=== PATIENT | male | born 1995 | race Caucasian/White ===

== ENCOUNTER 2024-12-05 17:19 | Emergency (ER) | payer MEDICAID, SELFPAY ==
[2024-12-05 17:40] VITALS: BP 134/91; PULSE 60; RESP 18; TEMP 36.8; O2SAT 99; BMI 20.6
--- NOTE | 2024-12-05 17:44 | XR_ITS ---
Examination: Venous duplex lower extremity sonogram, bilateral. Date and time of exam: December 05, 2024 1820 hours INDICATIONS: Bilateral foot and ankle pain and swelling beginning 2 days ago Technique: Multiple sonographic images of the deep venous system have been obtained. B-mode/2-D grayscale imaging of vascular structures and Doppler spectral analysis (waveforms) and color performed Both legs are examined. Findings: Deep venous systems do not demonstrate abnormal echogenicity. All visualized deep veins exhibit compressibility. All visualized deep veins exhibit augmentation. Impression: Negative for deep vein thrombosis
--- NOTE | 2024-12-05 17:44 | XR_ITS ---
Examination: PA lateral chest 2 views TECHNIQUE: Upright PA lateral chest 2 views Date and time: December 05, 2024 1801 hours INDICATIONS: Headaches shortness of breath today FINDINGS: Normal heart size No pneumonia or pulmonary edema The osseous structures are intact IMPRESSION: No active disease
--- NOTE | 2024-12-05 17:45 | PD.EDRME ---
Rapid Medical Screening Exam RME Arrival date/time: 12/05/24 17:19 29-year-old male who presents to the emergency department for complaint of bilateral lower extremity swelling and pain Chief Complaint: General Adult/Misc Complain Vital signs: Vital Signs Temperature 98.2 F 12/05/24 17:40 Pulse Rate 60 12/05/24 17:40 Respiratory Rate 18 12/05/24 17:40 Blood Pressure 134/91 H 12/05/24 17:40 Pulse Oximetry (%) 99 12/05/24 17:40 Oxygen Delivery Method Room Air 12/05/24 17:40
[2024-12-05 18:33] LABS: Collection Type, Urine Clean Catch
[2024-12-05 18:43] LABS: Bilirubin,Urine Negative (Negative); Blood,Urine 2+ (Negative); Clarity,Urine Clear (Clear/Hazy); Color,Urine Yellow (Lt Yel-Yel); Glucose, Urine Negative (Negative); Ketones,Urine Negative (Negative); Leukocyte Esterase,Urine Negative (Negative); Nitrite,Urine Negative (Negative); PH,Urine 6.5 (5.0-7.0); Protein,Urine 3+ (Neg - Trace); RBC,Urine 17 /hpf (0-3); Specific Gravity,Urine 1.042 (1.001-1.035); Squamous Epithelial Cell,Urine < 1 /hpf (0-5); Urobilinogen,Urine Negative mg/dL (0.0-1.0); WBC,Urine 13 /hpf (0-5)
[2024-12-05 18:51] LABS: Culture Indicated,Urine Yes
[2024-12-05 18:53] LABS: Amphetamine/Methamp Scrn,U Negative (Negative); Barbiturate Screen,Urine Negative (Negative); Benzodiazepines Screen,Urine Negative (Negative); Benzoylecgonine Screen, Ur Negative (Negative); Fentanyl Screen,Urine Negative (Negative); Opiate Screen,Urine Negative (Negative); THC Screen,Urine Positive (Negative)
[2024-12-05 19:14] LABS: Basophils # (Auto) 0.1 Thou/mm3 (0.0-0.2); Basophils % (Auto) 1 % (0-2.5); Eosinophils # (Auto) 0.2 Thou/mm3 (0.0-0.5); Eosinophils % (Auto) 3 % (0-10); Hematocrit 40.1 % (41.0-53.0); Hemoglobin 14.3 g/dL (13.5-16.0); Immature Granulocytes % (Auto) 0 % (0-0); Immature Granulocytes Auto 0.02 Thou/mm3 (0.00-0.00); Lymphocytes # (Auto) 2.6 Thou/mm3 (1.0-4.8); Lymphocytes % (Auto) 33 % (10-50); Mean Corpuscular HGB Conc 35.7 g/dl (31.0-37.0); Mean Corpuscular Volume 87 fL (80-100); Monocytes # (Auto) 0.7 Thou/mm3 (0.0-0.8); Monocytes % (Auto) 8 % (0-12); Neutrophils # (Auto) 4.3 Thou/mm3 (1.8-7.7); Neutrophils % (Auto) 54 % (37-80); Nucleated Red Blood Cell % 0 /100 WBC (0); Platelet Count 259 Thou/mm3 (140-440); RDW Standard Deviation 37.1 fL (35.1-43.9); Red Blood Count 4.62 Miln/mm3 (4.50-5.90); White Blood Count 7.9 Thou/mm3 (3.8-10.6)
[2024-12-05 19:31] LABS: Partial Thromboplastin Time 27.6 Seconds (22.0-36.0); Prothrombin Time 10.6 Seconds (9.0-12.2)
[2024-12-05 19:43] LABS: B-Type Natriuretic Peptide 83 pg/mL (0-100)
[2024-12-05 19:45] LABS: Alanine Aminotransferase 115 U/L (10-49); Albumin, Serum 2.4 gm/dL (3.5-5.0); Albumin/Globulin Ratio 1.3 (1.2-2.2); Alkaline Phosphatase 49 U/L (46-116); Anion Gap 8 (7-16); Aspartate Amino Transferase 111 U/L (0-34); BUN/Creatinine Ratio 23 Ratio (12-20); Bilirubin,Total 0.4 mg/dL (0.3-1.2); Blood Urea Nitrogen 28 mg/dL (9-23); Calcium 8.8 mg/dL (8.3-10.6); Calcium (Corrected) 10.1 mg/dL (8.5-10.1); Carbon Dioxide 26.9 mMol/L (20.0-31.0); Chloride 103 mMol/L (98-107); Creatinine (Component) 1.2 mg/dL (0.6-1.3); Estimated Creatinine Clearance 82.4 mL/min (>60); Globulin 1.8 gm/dL (2.3-3.5); Glucose 98 mg/dL (74-106); Osmolality,Calculated 281 (275-295); Potassium 4.1 mMol/L (3.4-5.1); Sodium 138 mMol/L (136-145); Total Protein 4.2 gm/dL (5.7-8.2); eGFR > 60 See Note
--- NOTE | 2024-12-05 19:47 | XR_ITS ---
Examination: CT chest with intravenous contrast CT abdomen with intravenous contrast CT pelvis with intravenous contrast 2-D coronal and sagittal reconstructions Time of exam: December 05, 20242002 hours INDICATIONS: Diffuse pedal edema and shortness of breath today CTDI: vol (mGy) : 5.20 DLP: (mGycm): 393 Technique: Multiple axial images of the chest, abdomen and pelvis with intravenous contrast, 3.0 mm slice thickness. Images obtained post intravenous injection Isovue 370 60 cc. 2-D sagittal and coronal reconstructions. Low dose protocols were performed. One or more of the following dose reduction techniques were used; automated exposure control, adjustment of the mA and/or KV according to patient size, use of iterative reconstruction technique. Findings: No thoracic aortic aneurysm dilatation No pulmonary artery emboli No paratracheal tracheobronchial or bronchopulmonary adenopathy No pneumonia or pulmonary edema or pleural disease No visualized liver or splenic lesion Diffuse fatty infiltration throughout the liver No focal liver or splenic lesion Mild ascites Thickening of small bowel loops and colon hanley No gallstones No pancreatic mass No hydronephrosis Anasarca Normal appendix No bowel obstruction Urinary bladder is intact IMPRESSION: Suspect primary hepatocellular disease, such as acute hepatitis Mild ascites, anasarca Hepatic colopathy, hepatic enteropathy
--- NOTE | 2024-12-05 20:06 | EDNOTE_ITS ---
Lower Extremity Injury RME/HPI General Chief Complaint: General Adult/Misc Complain Stated Complaint: B/L SWELLING FEET Time Seen by Provider: 12/05/24 18:14 Arrival date/time: 12/05/24 17:19 Mode of arrival: ambulatory Limitations: no limitations RME / HPI RME / HPI Narrative: 12/05/24 17:19 29-year-old male who presents to the emergency department for complaint of bilateral lower extremity swelling and pain DR. DOMINGO?S MAIN ED EVALUATION: 29-year-old male presenting to the emergency department via private auto who is presenting for chief complaint of BLE swelling that has migrated to his waist x 3 days. Swelling began at the feet and ankles before moving up to his waste. He also reports some nausea and vomiting x this morning. 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 Patient has no PCP, but has been seen and told that he had edema, but no explanation as to why. Patient has an appointment next month to establish care with a PCP at [facility]. No associated symptoms include fatigue and tiredness, SOB, diarrhea, fever, dysuria, and abdominal pain. Also denies alcohol use or history of liver disease, but admits to Marijuana use. Brother has a history of cystic fibrosis. Patient denies any other associated symptoms or medical complaints. - PMH:?Denies - PSH: Denies - Social history: Marijuana - Current medications: Reviewed PCP is N/A complaint: other (BLE Swelling) Onset (ago): day(s) (3) Associated symptoms: ambulatory Other symptoms: none Related Data Previous Rx's ?Medication ?Instructions ?Recorded ibuprofen 800 mg tablet 800 mg PO TID PRN pain #30 t abs 01/10/22 atorvastatin 40 mg tablet 40 mg PO QDAY hyperlipidemia 30 12/05/24 days #30 tabs furosemide 20 mg tablet 20 mg PO QAM swelling #30 ta bs 12/05/24 lisinopril 5 mg tablet 5 mg PO QDAY proteinuria 30 days 12/05/24 #30 tabs Allergies Allergy/AdvReac Type Severity Reaction Status Date / Time No Known Allergies Allergy Verified 12/05/24 17:21 Review of Systems Review of Systems Systems Reviewed: All systems reviewed, normal except as documented Past Medical History Past Medical History CARDIAC: Negative Cardiac Disorders or Congestive Heart Failure RESPIRATORY: Negative Chronic Obstructive Pulmonary Disease (COPD) or Asthma GENITOURINARY: Negative Renal Disease ENDOCRINE: Negative Diabetes Mellitus Type 1 or Diabetes Mellitus Type 2 HEMATOLOGIC: Negative Sickle Cell Disease Social History SMOKING STATUS: Current every day smoker ED Exam General Limitations: Present no limitations Head Head exam: Present atraumatic, normocephalic and normal inspection Eye Eye exam: Present normal appearance, PERRL and EOMI; Absent nystagmus ENT ENT exam: Present normal exam, normal oropharynx, mucous membranes moist and TM's normal bilaterally Neck Neck exam: Present normal inspection, full ROM and trachea midline; Absent tenderness Chest Chest inspection: Present normal inspection and symmetric chest wall rise; Absent tenderness or rash Respiratory Respiratory exam: Present normal lung sounds bilaterally; Absent respiratory distress, wheezes or stridor Cardiovascular Cardiovascular exam: Present regular rate, normal rhythm and normal heart sounds Abdominal Exam Abdominal exam: Present other (Diffused 1+ pitting edema of the stomach); Absent organomegaly (No liver masses) Extremities Exam Extremities exam: Present other (Swelling of BLE, RT > LT); Absent tenderness Back Exam Back exam: Present normal inspection and full ROM; Absent tenderness or paraspinal tenderness Neurological Exam Neurological exam: Present alert, oriented X3, CN II-XII intact and normal gait Psychiatric Psychiatric exam: Present normal affect and normal mood; Absent depressed, agitated or anxious Skin Skin exam: Present warm, dry and intact Course Course Course Narrative: CXR is ordered for determining the etiology of shortness of breath. Quality Measures none Orders Category Date Time Status CT Screening NOW Care 12/05/24 19:[address] chest abdomen pelvis w Stat Exams 12/05/24 19:47 Completed US renal BI Stat Exams 12/05/24 23:40 Taken US venous doppler LE BI Stat Exams 12/05/24 17:44 Completed XR chest 2V Stat Exams 12/05/24 17:44 Completed ANCA Scrn,MPO&PR3,Rflx Titer* Stat Lab 12/05/24 Received [id number]* Stat Lab 12/05/24 Received BNP [B-Type Natriuretic Peptide] Stat Lab 12/05/24 18:56 Completed CBC Stat Lab 12/05/24 18:56 Completed Comprehensive Metabolic Panel Stat Lab 12/05/24 18:56 Completed Drug Screen,Urine Stat Lab 12/05/24 18:13 Completed Hepatitis Acute Panel Stat Lab 12/05/24 22:56 Received Lipid Panel Stat Lab 12/05/24 22:56 Completed Partial Thromboplastin Time Stat Lab 12/05/24 18:56 Completed Prothrombin Time with INR Stat Lab 12/05/24 18:56 Completed UA, C/S IF [Urinalysis, C/S if Indicated] Stat Lab 12/05/24 18:12 Completed Urine Culture Stat Lab 12/05/24 18:12 Received Furosemide [Lasix Inj] Med 12/05/24 23:30 Discontinued 20 mg IVP X1 ONE Vital Signs Vital signs: Vital Signs Temperature 98.2 F 12/05/24 17:40 Pulse Rate 60 12/05/24 17:40 Respiratory Rate 18 12/05/24 17:40 Blood Pressure 134/91 H 12/05/24 17:40 Pulse Oximetry (%) 99 12/05/24 17:40 Oxygen Delivery Method Room Air 12/05/24 17:40 Extremity Injury, Lower MDM Narrative MDM Narrative:: Scribe Attestation: 12/05/2024 - Judi Calderon am scribing for and in the presence of Dr. Domingo. Provider Notation: Although this document has been carefully reviewed, there may still be some phonetic and other typographical errors.? These errors are purely grammatical due to imperfections in the software program and should not be construed in any way to compromise the substance of the patient's medical care during this visit. 29-year-old male presenting to the emergency department via private auto who is presenting for chief complaint of BLE swelling that has migrated to his waist x 3 days. Swelling began at the feet and ankles before moving up to his waste. He also reports some nausea and vomiting x this morning. ROS: BLE swelling up to his waist x 3 days; nausea, vomiting x this morning. Differential diagnoses include UTI, Protein urea, Tumor, Liver disorder, Acute Renal Failure, Cardiovascular Disease, Hx of Alcohol Patient data External records reviewed:: [facility] previous records (No recent ED records available for review) Clinical information provided by:: patient Social determinants that could affect healthcare access:: substance use (Jessica prasad) Patient has the following chronic illnesses:: None reported How is presenting disease/condition affected by chronic disease/condition?: no chronic disease Evaluation data The following diagnostics were reviewed and interpreted by me:: lab results and radiology exam(s) Lab and/or radiology exams considered but not ordered:: None Interpretation Summary: RADIOLOGY Chest/Abdomen/Pelvis CT: CT, my interpretation: reviewed, interpreted, and agreed with radiologist report; see below. Findings: No thoracic aortic aneurysm dilatation No pulmonary artery emboli No paratracheal tracheobronchial or bronchopulmonary adenopathy No pneumonia or pulmonary edema or pleural disease No visualized liver or splenic lesion Diffuse fatty infiltration throughout the liver No focal liver or splenic lesion Mild ascites Thickening of small bowel loops and colon hanley No gallstones No pancreatic mass No hydronephrosis Anasarca Normal appendix No bowel obstruction Urinary bladder is intact IMPRESSION: Suspect primary hepatocellular disease, such as acute hepatitis Mild ascites, anasarca Hepatic colopathy, hepatic enteropathy Venous Doppler Study: Findings: Deep venous systems do not demonstrate abnormal echogenicity. All visualized deep veins exhibit compressibility. All visualized deep veins exhibit augmentation. Impression: Negative for deep vein thrombosis Chest X-Ray: FINDINGS: Normal heart size No pneumonia or pulmonary edema The osseous structures are intact IMPRESSION: No active disease Renal US: Findings: Right: The right kidney measures 11.9 cm and is unremarkble. There is no hydronephrosis or renal calculus. The corticomedullary differentiation is maintained. Left: The left kidney measures 11.9 cm and is unremarkble. There is no hydronephrosis or renal calculus. The corticomedullary differentiation is maintained. No abnormalities by Doppler. Impression: Unremarkable renal ultrasound examination. LABS Marijuana Positive. Hct 40.1%, Immature Gran # 0.02. BUN 28, BUN/Creatinine Ratio 23, AST 111, ALT 115, Total Protein 4.2, Albumin 2.4, Globulin 1.8. Urine Specific [place] 1.042, Urine Protein 3+, Urine Blood 2+, Urine RBC 17, Urine WBC 13. Medications / Prescriptions Medications or Prescriptions considered but not ordered:: None Medication administrations:: Medication Administration History Discontinued Medications Furosemide (Furosemide Inj 10 Mg/Ml Vial 2 Ml) 20 mg IVP X1 ONE Stop: 12/05/24 23:31 Last Admin: 12/06/24 01:00 Dose: 20 mg Documented By: See above if any Consultations Consultation(s) initiated? (list below): Yes Consultation #1 (Physician, Specialty, Details): Spoke to medicine, made aware of the patient?s HPI, PMHx, lab and/or radiology results. Discussed treatment plan. Will come down to evaluate patient. Time: 22:16 Diagnosis Extremity Injury, Lower Differential Diagnosis: other (UTI, Protein urea, Tumor, Liver disorder, Acute Renal Failure, Cardiovascular Disease, Hx of Alcohol) Most likely diagnosis given after review of the tests above:: Anasarca, Pedal edema, Nephrotic syndrome Admission Indicated Admission indicated?: not indicated Explain why admission is indicated or not indicated:: Does not meet admission criteria Admission Request Was there a request for admission?: No Discharge Plan Plan Patient Disposition: HOME (Self Care) Patient condition on transfer: Stable Prescriptions/Referrals Prescriptions/Med Rec: New furosemide 20 mg tablet 20 mg PO QAM Qty: 30 0RF lisinopril 5 mg tablet 5 mg PO QDAY 30 Days Qty: 30 0RF atorvastatin 40 mg tablet 40 mg PO QDAY 30 Days Qty: 30 0RF No Action ibuprofen 800 mg tablet 800 mg PO TID PRN (Reason: pain) Qty: 30 0RF Referrals: Nickolas Montiel MD [Primary Care Provider] - In 1 week Problem List Clinical Impression: Nephrotic syndrome, Pedal edema, Anasarca Patient/Caregiver Discharge Instructions Education Materials: Kidney Disease Avoid High Sodium Additional Instructions: It is very important that [facility] in the next 2 to 3 days. The preliminary renal ultrasound was completed c 1. DO READ your discharge instructions as these contain important information concerning your medical care. 2. If medication has been prescribed for your condition, fill the prescription as soon as possible and follow the directions on the medication. 3. RETURN AT ONCE TO THE EMERGENCY DEPARTMENT if you have any problems or concerns. These include but are not limited to fever, worsening pain(belly, chest, head, etc?), worsening shortness of breath, uncontrollable bleeding, inability to tolerate food and water, or any condition that makes you question your well-being. Also, if your symptoms do not improve in the next 12-24 hours, return to the ER or seek medical care immediately. 4. Be sure to follow up with your regular physician or specialist as instructed at discharge as this is the best way to ensure that you receive the very best of care. If you do not have a primary care physician, please contact a physician group and make an appointment. 5. Please visit [facility] for coupons regarding your prescriptions. It is a free service for you to use and can help reduce the cost of your medication. 6. Please follow up with the [facility], call for appointment when it opens on Saturday, 12/08 9 am - 4 pm: [address] [place] [address] You may schedule an appointment that fits your schedule. Dr. Hopkins who saw you in the ER will be available on Saturday. We would like to thank you for coming today and our hope is that we served you and your family well during your stay. Print Language: Russian Stand Alone Forms: Jacquelyn Award Info., Patient Portal Info Letter
[2024-12-05 23:24] LABS: Cardiac Risk Estimate 4.1 RATIO (4.0-6.7); Cholesterol 368 mg/dL (132-200); HDL Cholesterol 89 mg/dL (40-60); LDL Cholesterol,Calculated 256 mg/dL (0-130); Triglycerides 116 mg/dL (30-150)
--- NOTE | 2024-12-05 23:40 | XR_ITS ---
Examination: Retroperitoneal ultrasound, complete Technique: Multiple high resolution grayscale images of the retroperitoneum obtained, including kidneys and bladder. Exam date and time:December 05, 2024 11:53 AM INDICATIONS: Nephrotic syndrome diagnosis this week FINDINGS: Right kidney 11.9 cm renal cortex is 1.6 cm Left kidney 11.9 cm cortex 1.2 cm Mild renal parenchymal scar formation No hydronephrosis IMPRESSION: Mild bilateral renal parenchymal scar formation No hydronephrosis or renal calculi
[2024-12-05 23:50] LABS: HIV (1&2) Antibody Rapid Non-Reactive
--- NOTE | 2024-12-06 00:46 | PD.RESCONSUL ---
HPI Data of Consult Primary Care Provider: Nickolas Montiel MD Consult Narrative Reason for consult: Anasarca History of present illness: Patient is a 29-year-old male with no past medical history who presented to the ED on 12/05/2024 with bilateral swelling to the lower extremities starting 3 days ago which has spread up to his waist this morning. He also had an episode of nausea and vomiting this morning. He denies any abdominal or flank pain. He denies any similar prior episodes. Patient denies any change to bowel or urinary habits, denies foam in the urine. Patient denies any recent illness, travel, sick contacts, change to diet, illicit drug or IV use. Patient is a welder production line arc. He lives at home with and kids. Patient has seen a clinic and was told that he had edema without specific diagnosis and instructed to elevate his legs. Patient denies any known family history of liver disorders or kidney disease. ED Course: -Initial vitals were 134/91, HR 60, RR 18, Temp 98.2, O2 99% on room air -Labs significant for BUN 28, creatinine 1.2, normal electrolytes, AST 111, ALT 115, total protein 4.2, albumin 2.4, triglycerides 116, total cholesterol 368, LDL 256, HDL 89 -UA showed 3+ protein, 2+ blood, 17 RBCs, 13 WBCs -Utox was positive for marijuana -CXR normal -US venous duplex bilateral lower extremities negative for DVT -CT chest/abdomen/pelvis with contrast showed suspected primary hepatocellular disease, such as acute hepatitis, mild ascites, anasarca, hepatic colopathy, hepatic enteropathy -Hospital team was consulted for further recommendations for treatment and workup of anasarca Review of Systems Review of systems otherwise negative except what is mentioned above. cc:: cc: Past Medical History Past Medical History Comments PMH COMMENT: Past Medical History: None Family History: Denies any family history of hypertension, diabetes, liver, or kidney disease Surgical History: Denies any past surgeries Social History: Denies history of smoking, denies current alcohol use, smokes marijuana daily Current Medications: None (Source: Patient) Allergies: No known drug allergies Exam Vital Signs Temp Pulse Resp BP Pulse Ox O2 Del Method 98.2 F 60 18 134/91 H 99 Room Air 12/05/24 17:40 12/05/24 17:40 12/05/24 17:40 12/05/24 17:40 12/05/24 17:40 12/05/24 17:40 Narrative Exam Physical Exam General: Awake and in no acute distress. Conversational and non-toxic appearing. Face appears to have some muscle wasting. HEENT: Normocephalic, atraumatic, mucous membranes moist. Heart: Regular rate and rhythm, normal S1 and S2, no murmurs. Lungs: Clear to auscultation with no wheezing or crackles. Abdomen: Soft, nondistended, nontender, positive bowel sounds. ?No guarding or rebound tenderness. Neurologic: Alert and oriented x3, no gross neurological deficit, and patient able to move all 4 extremities. Extremities: 2+ bilateral lower extremity pitting edema, pitting edema up to the waist Skin: No rash or ecchymoses. Results Labs 12/05/24 18:56 12/05/24 18:56 Labs: Short CBC 12/05/24 Range/Units 18:56 WBC 7.9 (3.8-10.6) Thou/mm3 Hgb 14.3 (13.5-16.0) g/dL Hct 40.1 L (41.0-53.0) % Plt Count 259 (140-440) Thou/mm3 BMP 12/05/24 18:56 Sodium 138 Potassium 4.1 Chloride 103 Carbon Dioxide 26.9 BUN 28 H Creatinine 1.2 Glucose 98 Calcium 8.8 Liver Function 12/05/24 Range/Units 18:56 Total Bilirubin 0.4 (0.3-1.2) mg/dL AST 111 H (0-34) U/L ALT 115 H (10-49) U/L Alkaline Phosphatase 49 (46-116) U/L Albumin 2.4 L (3.5-5.0) gm/dL Urine 12/05/24 Range/Units 18:12 Urine Color Yellow (Lt Yel-Yel) Urine Clarity Clear (Clear/Hazy) Urine pH 6.5 (5.0-7.0) Ur Specific [place] 1.042 H (1.001-1.035) Urine Protein 3+ A (Neg - Trace) Urine Glucose (UA) Negative (Negative) Quality Measures Quality Measures none Medications Home Medications and Allergies Allergies Allergy/AdvReac Type Severity Reaction Status Date / Time No Known Allergies Allergy Verified 12/05/24 17:21 Visit Medications Discontinued Medications Furosemide (Furosemide Inj 10 Mg/Ml Vial 2 Ml) 20 mg IVP X1 ONE Stop: 12/05/24 23:31 Assessment & Plan Plan 29-year-old male with no past medical history who presented to the ED on 12/05/2024 with bilateral swelling to the lower extremities starting 3 days ago. Hospital team was consulted for further recommendations regarding further treatment and workup of anasarca. #Anasarca #Bilateral lower extremity edema #Proteinuria #Hematuria #AST and ALT elevation #Possible hepatic disease #Possible nephrotic syndrome #Hyperlipidemia Patient presents with acute, progressive lower extremity edema. Workup in the ED reveals proteinuria of 3+, hematuria 2+. CT chest/abdomen/pelvis with contrast showed suspected primary hepatocellular disease, such as acute hepatitis, mild ascites, anasarca, hepatic colopathy, hepatic enteropathy. However patient is denying any risk factors for acute hepatitis or liver disease. Will recommend additional screening tests. On examination the patient has lower extremity pitting edema that is 2+ up to the waist, however is conversant, on room air, and not ill-appearing. Patient is reporting adequate urine production. Lipid panel revealed triglycerides 116, total cholesterol 368, LDL 256, HDL 89. Elevated TC and LDL may support a diagnosis of nephrotic syndrome. -Recommend hepatitis panel - pending -Ordered HIV, ANCA, MPO, AP3, [id number] -Ordered 1 dose of Lasix 20 mg IV x1 -Recommend renal US -Prescribed lisinopril 5 mg qday for proteinuria -Prescribed furosemide 20 mg qday for anasarca -Prescribed atorvastatin 40 mg qday for hyperlipidemia -Patient is safe to be discharged home with strict return precautions -Patient advised to follow up at [facility] for Nephrology referral and further workup Patient plan of care was discussed with the attending physician, Dr. Sorto. Marquita Hopkins, PGY-2
--- NOTE | 2024-12-06 00:56 | PRELIM_ITS ---
Renal/Retroperitoneal ultrasound with Doppler. December 05, 2024 at 2353 hours Clinical history: Nephrotic syndrome. Technique: Duplex scan of the bilateral renal arterial and venous tree was performed utilizing 2D grayscale imaging, Doppler spectral analysis and color flow. Comparison: No prior study is available for comparison. Findings: Right: The right kidney measures 11.9 cm and is unremarkable. There is no hydronephrosis or renal calculus. The corticomedullary differentiation is maintained. Left: The left kidney measures 11.9 cm and is unremarkable. There is no hydronephrosis or renal calculus. The corticomedullary differentiation is maintained. No abnormalities by Doppler. Impression: Unremarkable renal ultrasound examination. Report Electronically Signed By: Rock Menard 12/06/2024 12:55:38 AM [EST]
[2024-12-06 01:00] VITALS: BP 115/79; PULSE 64
[2024-12-06] MEDS: FUROSEMIDE INJ 10 MG/ML VIAL 2 ML 20 MG IVP (01:00)
[2024-12-06 01:19] VITALS: BP 120/82; PULSE 55; RESP 18; TEMP 36.6; O2SAT 97
[2024-12-08 10:21] LABS: Hepatitis A Antibody IgM Non Reactive (Non React); Hepatitis B Core Antibody IgM Non Reactive (Non React); Hepatitis B Surface Antigen Non Reactive (Non React); Hepatitis C Antibody Non Reactive (Non React)
[2024-12-14 07:27] LABS: ANCA Screen NEGATIVE (NEGATIVE); Alpha-1-Antitrypsin* 97 mg/dL (83-199); Myeloperoxidase Ab <1.0 AI (<1.0); Proteinase-3 Ab <1.0 AI (<1.0)
== END 2024-12-06 01:20 | disposition home or self-care (01) ==
PROVIDERS: Nurse Practitioner Primary Care; Student in an Organized Health Care Education/Training Program; Emergency Provider Emergency Medicine; PCP Family Medicine
DX: M79.89 Other specified soft tissue disorders (principal); N04.9 Nephrotic syndrome with unspecified morphologic changes; R60.0 Localized edema
CPT/HCPCS: 36415; 71046; 71260; 74177; 76770; 80053; 80061; 80074; 80307; 81001; 82103; 83880; 85025; 85610; 85730; 86021; 86036; 86703; 87086; 93970; 96374; 99285; A4649; J1938; Q9967

== ENCOUNTER 2024-12-07 19:17 | Emergency (ER) | payer MEDICAID, SELFPAY ==
[2024-12-07 19:42] VITALS: BP 124/77; PULSE 66; RESP 18; TEMP 36.7; O2SAT 97
--- NOTE | 2024-12-07 20:17 | PD.EDRME ---
Rapid Medical Screening Exam RME Arrival date/time: 12/07/24 19:17 29-year-old male diagnosed with anasarca reports with complaints of worsening lower extremity swelling Chief Complaint: Extremity Problem,Nontraumatic Time Seen by Provider: 12/07/24 19:44 Vital signs: Vital Signs Temperature 98.0 F 12/07/24 19:42 Pulse Rate 66 12/07/24 19:42 Respiratory Rate 18 12/07/24 19:42 Blood Pressure 124/77 12/07/24 19:42 Pulse Oximetry (%) 97 12/07/24 19:42 Oxygen Delivery Method Room Air 12/07/24 19:42
--- NOTE | 2024-12-07 20:24 | PD.EDEXREM ---
ED Extremity Problem RME/HPI General Chief complaint: Extremity Problem,Nontraumatic Stated complaint: SWELLING TO LOWER BODY Time Seen by Provider: 12/07/24 19:44 Arrival date/time: 12/07/24 19:17 RME / HPI RME / HPI Narrative: 12/07/24 19:17 29-year-old male diagnosed with anasarca reports with complaints of worsening lower extremity swelling ------ This section includes all my notes and documentations, including HPI, PE, and ED course. Dean Mora MD HPI: 29yo male presents to the ED for a chief complaint of swelling from his waist down. Patient states he was here 2 days ago for swelling to his abdomen and lower extremities, but states it has not improved since he was discharged, so he came in for further evaluation. Patient denies any chest pain, shortness of breath, abdominal pain or any other associated symptoms. Denies any alcohol use. Denies being on any daily medications. No other complaints reported. ROS: All negative except as documented in HPI. Physical Exam: General: Alert and oriented. No acute distress when remaining still. Eyes: Conjunctivae and lids clear. ENT: No nasal congestion. Neck: Supple. Heart: RRR. Lungs: No respiratory distress. Good air movement. No rhonchi, wheezing, rales. Abdomen: Soft and nontender. Normal bowel sounds. No distension. No rebound or guarding. Back: No CVA tenderness. Skin: Warm and dry. Neuro: Alert and oriented X 3. I reviewed all diagnostic test results from here on 12/05/2024. At this point, diagnoses include liver disease. Recommended supportive care and more workup with liver specialist. Based on my best medical judgment, made decision no further evaluation or treatment indicated at this time. Patient understands and agrees to the discharge instructions customized and printed, see below. Discharge Instructions from Dr. Mora printed for you: 1. After extensive evaluation here on 12/05/2024, your swelling in the abdomen and lower extremities is due to liver disease. 2. Your liver makes proteins needed in the blood vessels to keep the fluid/blood in the vessels. Because of your liver disease, this isn't working as well. So the fluid/blood leaking out of the blood vessels are causing your swellings. 3. Take Lasix/furosemide daily as prescribed on 12/05/2024. This can lower your potassium levels. So eat a banana daily. 4. When resting or sitting or sleeping, elevate your feet/ankles above your waist level. This is important to get the extra fluid back into your circulation so you can urinate out the fluid. 5. Most importantly, see a private doctor on 12/08/2024 for further care. Ask to review all test results and official radiology reports from 12/05/2024, to make sure you receive all necessary follow-ups and monitoring. Ask for help to find the cause and treatment of your liver disease. With more care not available here in the ER. Such as referral to see a liver specialist. 6. Seek immediate medical care with significant worsening or with any concerns. Dean Mora MD Related Data Previous Rx's ?Medication ?Instructions ?Recorded ibuprofen 800 mg tablet 800 mg PO TID PRN pain #30 tabs 01/10/22 atorvastatin 40 mg tablet 40 mg PO QDAY hyperlipidemia 30 12/05/24 days #30 tabs furosemide 20 mg tablet 20 mg PO QAM swelling #30 tabs 12/05/24 lisinopril 5 mg tablet 5 mg PO QDAY proteinuria 30 days 12/05/24 #30 tabs Allergies Allergy/AdvReac Type Severity Reaction Status Date / Time No Known Allergies Allergy Verified 12/05/24 17:21 Review of Systems Review of Systems Systems Reviewed: All systems reviewed, normal except as documented Past Medical History Past Medical History CARDIAC: Negative Cardiac Disorders or Congestive Heart Failure RESPIRATORY: Negative Chronic Obstructive Pulmonary Disease (COPD) or Asthma GENITOURINARY: Negative Renal Disease ENDOCRINE: Negative Diabetes Mellitus Type 1 or Diabetes Mellitus Type 2 HEMATOLOGIC: Negative Sickle Cell Disease Social History SMOKING STATUS: Never smoker ED Exam Narrative Physical exam: As noted in HPI. Course Quality Measures none Orders Category Date Time Status CBC Stat Lab 12/07/24 20:08 Ordered CMP [Comprehensive Metabolic Panel] Stat Lab 12/07/24 20:08 Ordered UA [Urinalysis] Stat Lab 12/07/24 20:08 Ordered Vital Signs Vital signs: Vital Signs Temperature 98.0 F 12/07/24 19:42 Pulse Rate 66 12/07/24 19:42 Respiratory Rate 18 12/07/24 19:42 Blood Pressure 124/77 12/07/24 19:42 Pulse Oximetry (%) 97 12/07/24 19:42 Oxygen Delivery Method Room Air 12/07/24 19:42 Extremity Problem MDM Narrative MDM Narrative:: Scribe Attestation: 12/07/24 Sylwia Lorenzana am scribing for and in the presence of Dr. Mora. 29yo male presents to the ED for a chief complaint of swelling from his waist down. Patient states he was here 2 days ago for swelling to his abdomen and lower extremities, but states it has not improved since he was discharged, so he came in for further evaluation. Patient denies any chest pain, shortness of breath, abdominal pain or any other associated symptoms. Denies any alcohol use. Denies being on any daily medications. No other complaints reported. Patient data External records reviewed:: [facility] previous records (Per chart review, patient was seen here on 12/05/24 for anasarca and nephrotic syndrome. Patient was sent home with prescriptions for Laxix 20mg, Lisinopril 5mg, and Atorvastatin 40mg.) Clinical information provided by:: patient Social determinants that could affect healthcare access:: none Patient has the following chronic illnesses:: none How is presenting disease/condition affected by chronic disease/condition?: no chronic disease Evaluation data The following diagnostics were reviewed and interpreted by me:: other (specify) (none) Lab and/or radiology exams considered but not ordered:: none Interpretation Summary: none Medications / Prescriptions Medications or Prescriptions considered but not ordered:: none Medication administrations:: none Consultations Consultation(s) initiated? (list below): No Diagnosis Extremity Problem Differential Diagnosis: cellulitis, superficial thrombophlebitis, lower extremity edema, deep vein thrombosis of lower extremity and other (CHF, liver disease) Most likely diagnosis given after review of the tests above:: Liver disease Admission Indicated Admission indicated?: not indicated Explain why admission is indicated or not indicated:: With no severe illness, there was no indication for admission. Admission Request Was there a request for admission?: No Disposition Plan Disposition Plan: Discharge Discharge Attestation Discharge Attestation: The patient and all family members were given an opportunity to ask questions and understood the discharge instructions. Discharge instructions specifically effects, indications for sooner follow up or return to the emergency department, and the expected course of current diagnosis. Patient condition: Stable Discharge Plan Plan Patient Disposition: HOME (Self Care) Prescriptions/Referrals Prescriptions/Med Rec: No Action ibuprofen 800 mg tablet 800 mg PO TID PRN (Reason: pain) Qty: 30 0RF furosemide 20 mg tablet 20 mg PO QAM Qty: 30 0RF lisinopril 5 mg tablet 5 mg PO QDAY 30 Days Qty: 30 0RF atorvastatin 40 mg tablet 40 mg PO QDAY 30 Days Qty: 30 0RF Referrals: Fabio Sorto MD [Primary Care Provider] - In 1 week Problem List Clinical Impression: Liver disease Patient/Caregiver Discharge Instructions Discharge Activity: activity as tolerated Education Materials: ED Ascites, ED Cirrhosis Additional Instructions: Discharge Instructions from Dr. Mora printed for you: 1. After extensive evaluation here on 12/05/2024, your swelling in the abdomen and lower extremities is due to liver disease. 2. Your liver makes proteins needed in the blood vessels to keep the fluid/blood in the vessels. Because of your liver disease, this isn't working as well. So the fluid/blood leaking out of the blood vessels are causing your swellings. 3. Take Lasix/furosemide daily as prescribed on 12/05/2024. This can lower your potassium levels. So eat a banana daily. 4. When resting or sitting or sleeping, elevate your feet/ankles above your waist level. This is important to get the extra fluid back into your circulation so you can urinate out the fluid. 5. Most importantly, see a private doctor on 12/08/2024 for further care. Ask to review all test results and official radiology reports from 12/05/2024, to make sure you receive all necessary follow-ups and monitoring. Ask for help to find the cause and treatment of your liver disease. With more care not available here in the ER. Such as referral to see a liver specialist. 6. Seek immediate medical care with significant worsening or with any concerns. Print Language: [place] Stand Alone Forms: Jacquelyn Award Info., Patient Portal Info Letter
== END 2024-12-07 20:46 | disposition home or self-care (01) ==
PROVIDERS: Emergency Provider Emergency Medicine; PCP Student in an Organized Health Care Education/Training Program
DX: K76.9 Liver disease, unspecified (principal)
CPT/HCPCS: 80053; 81001; 85025; 99281

== ENCOUNTER 2024-12-29 15:26 | Inpatient (IN) | payer MEDICAID, SELFPAY ==
--- NOTE | 2024-12-29 15:30 | PD.EDADULT ---
ED General RME/HPI General Chief complaint: General Adult/Misc Complain Stated complaint: sent by pmd for admit. emory, elevatedliver enzymes. Time Seen by Provider: 12/29/24 15:28 Arrival date/time: 12/29/24 15:26 Limitations: no limitations RME / HPI RME / HPI narrative: Sent here by his PCP for admission/renal artery Bx. He has an EMORY and elevated LFTs. Related Data Home Medications ?Medication ?Instructions ?Recorded ?Confirmed bumetanide 2 mg tablet 2 mg PO QDAY 12/29/24 12/29/24 Previous Rx's ?Medication ?Instructions ?Recorded atorvastatin 40 mg tablet 40 mg PO QDAY hyperlipidemia 30 12/05/24 days #30 tabs Allergies Allergy/AdvReac Type Severity Reaction Status Date / Time No Known Allergies Allergy Verified 12/29/24 15:27 Review of Systems Review of Systems Systems Reviewed: All systems reviewed, normal except as documented ED Exam General Limitations: Present no limitations General appearance: Present alert and in no apparent distress Head Head exam: Present atraumatic Eye Eye exam: Present normal appearance, PERRL and EOMI ENT ENT exam: Present normal exam, normal oropharynx and mucous membranes moist Neck Neck exam: Present normal inspection, full ROM and trachea midline Chest Chest inspection: Present normal inspection and symmetric chest wall rise Respiratory Respiratory exam: Present normal lung sounds bilaterally Cardiovascular Cardiovascular exam: Present regular rate, normal rhythm and normal heart sounds Abdominal Exam Abdominal exam: Present soft and normal bowel sounds Extremities Exam Extremities exam: Present normal inspection and full ROM Back Exam Back exam: Present normal inspection and full ROM Neurological Exam Neurological exam: Present alert, oriented X3 and CN II-XII intact Psychiatric Psychiatric exam: Present normal affect and normal mood Skin Skin exam: Present warm, dry, intact and normal color Course Quality Measures none Orders Category Date Time Status COVID-19 Screening Questionnaire NOW Care 12/29/24 16:25 Active Decision to Admit X1 Care 12/29/24 16:[address] biopsy renal LT Stat Exams 12/29/24 16:27 Ordered BNP [B-Type Natriuretic Peptide] Stat Lab 12/29/24 15:36 Completed CBC Stat Lab 12/29/24 15:36 Completed CMP [Comprehensive Metabolic Panel] Stat Lab 12/29/24 15:36 Completed Lipase Stat Lab 12/29/24 15:36 Completed UA, C/S IF [Urinalysis, C/S if Indicated] Stat Lab 12/29/24 16:50 Completed Sodium Chloride 0.45 % [Ns 0.45%] 1,000 ml Med 12/29/24 16:26 Discontinued IV 150 mls/hr Sodium Chloride 0.9% 1000 ml [Ns] 1,000 ml Med 12/29/24 16:28 Discontinued IV 999 mls/hr Vital Signs Vital signs: Vital Signs Temperature 98.3 F 12/29/24 15:50 Pulse Rate 66 12/29/24 15:50 Respiratory Rate 18 12/29/24 15:50 Blood Pressure 153/93 H 12/29/24 15:50 Pulse Oximetry (%) 98 12/29/24 15:50 Oxygen Delivery Method Room Air 12/29/24 15:50 Discharge Plan Plan Patient Disposition: Admit Acute Care w/in Hospital Problem List Clinical Impression: EMORY (acute kidney injury), Elevated liver enzymes MDM Narrative MDM hospital course: 29-year-old male who advised to come here by his PCP for renal biopsy. He patient has EMORY and elevated liver enzymes. There is concerns for nephrotic syndrome. Patient states he has no pain at this time. Has no nausea, vomiting, or dysuria. He has no acute complaints. Denies any fevers or chills. Exam is benign. Case discussed with Dr. Rollins with nephrology at approximately 1630 p.m. We will admit to medicine, nephrology to follow, patient will require renal biopsy. Clinical Information Provided by patient Chronic Illness/Social Conditions which may negatively complicate care or outcome(s)-explain: None or not applicable EKG EKG not done Imaging Imaging interpretation: none Medication Administration(s) Medication Administration History Acetaminophen (Acetaminophen 325 Mg Tablet) 650 mg PO Q6H PRN PRN Reason: Pain (1-3) & Fever >100.4 Stop: 01/28/25 17:25 Atorvastatin Calcium (Atorvastatin Calcium 20 Mg Tablet) 40 mg PO QDAY NANETTE Stop: 01/29/25 08:59 Ondansetron HCl (Ondansetron Inj 2 Mg/Ml Inj 2 Ml) 4 mg IVP Q6H PRN; Protocol PRN Reason: NAUSEA OR VOMITING Stop: 01/28/25 17:25 Sennosides (Senna Tablet) 1 tab PO QDAY PRN; Protocol PRN Reason: constipation Stop: 01/28/25 17:25 Discontinued Medications Atorvastatin Calcium (Atorvastatin Calcium 20 Mg Tablet) 40 mg PO HS NANETTE Stop: 01/28/25 20:59 Sodium Chloride (Ns 0.45%) 1,000 mls @ 150 mls/hr IV .Q6H40M NANETTE Stop: 01/28/25 16:25 Last Admin: 12/29/24 17:36 Dose: Not Given Documented By: VG Non-Admin Reason: Discontinued Sodium Chloride (Ns) 1,000 mls @ 999 mls/hr IV .Q1H1M ONE Stop: 12/29/24 17:28 Last Infusion: 12/29/24 18:02 Dose: Infused Documented By: Admin: 12/29/24 16:54 Dose: 999 mls/hr Documented By: ANNE Diagnosis Differential diagnosis: Acute hepatitis, EMORY, nephrotic syndrome Dispositon Disposition: Admit
[2024-12-29 15:50] VITALS: BP 153/93; PULSE 66; RESP 18; TEMP 36.8; O2SAT 98
[2024-12-29 15:59] LABS: Basophils # (Auto) 0.1 Thou/mm3 (0.0-0.2); Basophils % (Auto) 1 % (0-2.5); Eosinophils # (Auto) 0.4 Thou/mm3 (0.0-0.5); Eosinophils % (Auto) 5 % (0-10); Hematocrit 38.6 % (41.0-53.0); Hemoglobin 13.8 g/dL (13.5-16.0); Immature Granulocytes % (Auto) 0 % (0-0); Immature Granulocytes Auto 0.01 Thou/mm3 (0.00-0.00); Lymphocytes # (Auto) 2.2 Thou/mm3 (1.0-4.8); Lymphocytes % (Auto) 33 % (10-50); Mean Corpuscular HGB Conc 35.8 g/dl (31.0-37.0); Mean Corpuscular Hemoglobin 30.5 pg (25.0-35.0); Mean Corpuscular Volume 85 fL (80-100); Monocytes # (Auto) 0.6 Thou/mm3 (0.0-0.8); Monocytes % (Auto) 8 % (0-12); Neutrophils # (Auto) 3.4 Thou/mm3 (1.8-7.7); Neutrophils % (Auto) 52 % (37-80); Nucleated Red Blood Cell % 0 /100 WBC (0); Platelet Count 250 Thou/mm3 (140-440); RDW Standard Deviation 35.6 fL (35.1-43.9); Red Blood Count 4.53 Miln/mm3 (4.50-5.90); White Blood Count 6.7 Thou/mm3 (3.8-10.6)
[2024-12-29 16:17] LABS: Alanine Aminotransferase 159 U/L (10-49); Albumin, Serum 2.4 gm/dL (3.5-5.0); Albumin/Globulin Ratio 1.4 (1.2-2.2); Alkaline Phosphatase 80 U/L (46-116); Anion Gap 5 (7-16); Aspartate Amino Transferase 126 U/L (0-34); BUN/Creatinine Ratio 19 Ratio (12-20); Bilirubin,Total 0.2 mg/dL (0.3-1.2); Blood Urea Nitrogen 40 mg/dL (9-23); Calcium 7.7 mg/dL (8.3-10.6); Carbon Dioxide 33.3 mMol/L (20.0-31.0); Chloride 103 mMol/L (98-107); Creatinine (Component) 2.1 mg/dL (0.6-1.3); Estimated Creatinine Clearance 45.8 mL/min (>60); Globulin 1.7 gm/dL (2.3-3.5); Glucose 117 mg/dL (74-106); Lipase 34 U/L (12-53); Osmolality,Calculated 291 (275-295); Potassium 3.8 mMol/L (3.4-5.1); Sodium 141 mMol/L (136-145); Total Protein 4.1 gm/dL (5.7-8.2); eGFR 42 See Note
[2024-12-29 16:22] LABS: B-Type Natriuretic Peptide 110 pg/mL (0-100)
[2024-12-29] MEDS: SODIUM CHLORIDE 0.9% 1000 ML 1,000 ML 999 ML IV (16:54)
[2024-12-29 16:55] LABS: Collection Type, Urine Clean Catch
[2024-12-29 17:24] LABS: Bacteria,Urine Rare; Bilirubin,Urine Negative (Negative); Blood,Urine 3+ (Negative); Clarity,Urine Clear (Clear/Hazy); Color,Urine Lt-Yellow (Lt Yel-Yel); Culture Indicated,Urine Not Indicated; Glucose, Urine Negative (Negative); Ketones,Urine Negative (Negative); Leukocyte Esterase,Urine Negative (Negative); Nitrite,Urine Negative (Negative); PH,Urine 6.5 (5.0-7.0); Protein,Urine 3+ (Neg - Trace); RBC,Urine 19 /hpf (0-3); Specific Gravity,Urine 1.013 (1.001-1.035); Squamous Epithelial Cell,Urine < 1 /hpf (0-5); Urobilinogen,Urine Negative mg/dL (0.0-1.0); WBC,Urine 9 /hpf (0-5)
--- NOTE | 2024-12-29 17:32 | EKG_ITS ---
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
--- NOTE | 2024-12-29 17:33 | PD.RESHP ---
Documentation for date of: 12/29/24 HPI History of Present Illness Chief complaint: Acute kidney injury History of present illness: Mr. Amezcua is a 29-year-old male with past medical history of bilateral lower extremity edema, proteinuria, hematuria and suspected nephrotic syndrome who presented to [facility] emergency department on December 29, 2024 from nephrology office after being sent for acute kidney injury. Patient reported that he was seen in the emergency department in November, was found to have high suspicion of nephrotic syndrome, was started on medication and was seen by primary care physician outpatient. Patient reported that he saw his pediatric cardiologist for the first time today who reviewed his labs and recommended admission for further workup of acute kidney injury. Patient currently complains of bilateral lower extremity edema, reports that he has on and off edema, exacerbated with standing for long of time. Patient reports that he is able to pee normally, denies any decrease in urine output recently. Otherwise he has no current complaints, does complain of some diarrhea since the last 1 since he started medications. Denies taking any antibiotics recently. Patient otherwise denies any shortness of breath, chest pain, bruising, falls, dizziness and headache ED Course: ED Vitals: On presentation in ED blood pressure 153/93, heart rate 66, respirate rate 18, temp 98.3, O2 sat 98 on room air ED Labs: Emergency department labs significant for hematocrit 38.6, bicarb 33.3, BUN 40, creatinine 2.1, GFR 42, glucose 170, total bilirubin 0.2, AST 126, ALT 159, BNP 110, total protein 4.1, albumin 2.4, globulin 1.7. Urine analysis shows urine protein creatinine, urine blood 3+, urine RBC 19, urine WBC 9. Urine bacteria rare ED Imaging: No imaging done in ED ED Treatment:Patient was given 1 L bolus in ED Review of Systems Review of Systems Narrative Review of Systems: ROS: -CONSTITUTIONAL: Denies weight loss, fever and chills. -HEENT: Denies changes in vision and hearing. -RESPIRATORY: Denies SOB and cough. -CV: Denies palpitations and Chest Pain. -GI: Denies abdominal pain, nausea, vomiting,constipation and positive for diarrhea. -: Denies dysuria and urinary frequency. -MSK: Denies myalgia and joint pain. -SKIN: Denies rash and pruritus. Positive for bilateral lower extremity edema -NEUROLOGICAL: Denies headache and syncope. -PSYCHIATRIC: Denies recent changes in mood. Denies anxiety and depression. Past Medical History Past Medical History Comments PMH COMMENT: PMH: As above PSHx: Denies Allergies: No known drug and food allergies Social history: -Smoking: Denies, positive for marijuana smoking daily -Alcohol Use: Occasional alcohol use -Illicit Drug Use: Denies Family History: Denies any family history of liver, kidney or heart disorders Exam Vital Signs Temp Pulse Resp BP Pulse Ox O2 Del Method 98.3 F 66 18 153/93 H 98 Room Air 12/29/24 15:50 12/29/24 15:50 12/29/24 15:50 12/29/24 15:50 12/29/24 15:50 12/29/24 15:50 Narrative Exam Physical Exam General: Awake and in no acute distress. Conversational and non-toxic appearing. HEENT: Normocephalic, atraumatic, mucous membranes moist. Heart: Regular rate and rhythm, no murmurs. Lungs: Clear to auscultation with no wheezing or crackles. Abdomen: Soft, nondistended, nontender, positive bowel sounds. ?No guarding or rebound tenderness. Neurologic: Alert and oriented x3, no gross neurological deficit, and patient able to move all 4 extremities. Extremities: 3+ bilateral lower extremity edema Skin: No rash or ecchymoses. Results: Labs 12/29/24 15:36 12/29/24 15:36 Labs: Short CBC 12/29/24 Range/Units 15:36 WBC 6.7 (3.8-10.6) Thou/mm3 Hgb 13.8 (13.5-16.0) g/dL Hct 38.6 L (41.0-53.0) % Plt Count 250 (140-440) Thou/mm3 BMP 12/29/24 15:36 Sodium 141 Potassium 3.8 Chloride 103 Carbon Dioxide 33.3 H BUN 40 H Creatinine 2.1 H Glucose 117 H Calcium 7.7 L Liver Function 12/29/24 Range/Units 15:36 Total Bilirubin 0.2 L (0.3-1.2) mg/dL AST 126 H (0-34) U/L ALT 159 H (10-49) U/L Alkaline Phosphatase 80 (46-116) U/L Albumin 2.4 L (3.5-5.0) gm/dL Urine 12/29/24 Range/Units 16:50 Urine Color Lt-Yellow (Lt Yel-Yel) Urine Clarity Clear (Clear/Hazy) Urine pH 6.5 (5.0-7.0) Ur Specific [place] 1.013 (1.001-1.035) Urine Protein 3+ A (Neg - Trace) Urine Glucose (UA) Negative (Negative) Quality Measures Quality Measures none Medications Home Medications and Allergies Home Medications ?Medication ?Instructions ?Recorded ?Confirmed ?Type bumetanide 2 mg tablet 2 mg PO QDAY 12/29/24 12/29/24 History Allergies Allergy/AdvReac Type Severity Reaction Status Date / Time No Known Allergies Allergy Verified 12/29/24 15:27 Visit Medications Discontinued Medications Sodium Chloride (Ns 0.45%) 1,000 mls @ 150 mls/hr IV .Q6H40M NANETTE Stop: 01/28/25 16:25 Sodium Chloride (Ns) 1,000 mls @ 999 mls/hr IV .Q1H1M ONE Stop: 12/29/24 17:28 Last Admin: 12/29/24 16:54 Dose: 999 mls/hr Assessment & Plan Plan Assessment and plan: Summary: Mr. Amezcua is a 29-year-old male with past medical history of bilateral lower extremity edema, proteinuria, hematuria and suspected nephrotic syndrome who presented to [facility] emergency department on December 29, 2024 from nephrology office after being sent for acute kidney injury. Patient admitted to the hospital for further workup. #Acute Kidney Injury #Bilateral lower extremity edema #Hypoalbuminemia, proteinuria Suspicion of nephrotic syndrome Patient recently seen in the emergency department in November, was seen outpatient by nephrology today noted to have acute kidney injury. 12/29: BUN 40, creatinine 2.1, GFR 42 . Baseline BUN 21?28, creatinine 1.2, GFR more than 60 in November Patient had workup done outpatient, noted to have urine protein 3+ and blood 2+. Albumin 2.4, cholesterol 368, LDL 256 in November. Hepatitis panel, HIV nonreactive, ANCA screen negative, antimyeloperoxidase less than 1 Patient was started on atorvastatin, AR inhibitor and diuretics by PCP. Venous Doppler November 2024 negative for DVT, CT chest abdomen pelvis November 2024 shows primary hepatocellular disease such as acute hepatitis mild ascites, anasarca, hepatic colopathy and hepatic enteropathy, renal ultrasound November 2024 shows mild bilateral linear parenchymal scar formation Plan: -Strict intake and output -Ordered complement C3, C4 -Ordered 24-hour urine creatinine, microalbumin and protein -Ordered parathyroid, vitamin D and uric acid -Renally dose medication, avoid nephrotoxic agent -Follow lipid panel/A1c in a.m. -Resume atorvastatin 40 mg at bedtime -Will consider repeating bilateral lower extremity venous Doppler -Nephrology consulted, appreciate recommendations -Biopsy ordered per nephrology recommendations, n.p.o. after midnight #Transaminitis Patient's AST/ALT noted to be chronically elevated, AST 126, ALT 159 on admission alk phos within normal limits Hepatitis panel noted to be negative CT abdomen pelvis from November shows acute hepatitis, primary hepatocellular disease Plan: - Ordered iron panel, ferritin, ceruloplasmin, alpha-1 antitrypsin and JAN panel - Will consider liver ultrasound, however imaging was recently done - Follow CMP in a.m. - Will consider holding atorvastatin, however transaminitis was noted to be prior to the initiation of medication - Will avoid hepatotoxic agents #Dyslipidemia #Hyperlipidemia Resume home dose atorvastatin #THC dependence Patient smokes marijuana daily, U tox positive for THC, advised to abstain from daily marijuana use DVT prophylaxis: Not initiated, scheduled for biopsy GI prophylaxis: Not indicated Diet: Renal, n.p.o. after midnight Lines: Peripheral IV Code status: Full code Case discussed with Attending Dr. De Jesus. Bhavik Patel PGY1 Disclaimer: This note was dictated by speech recognition. Minor errors in deicer element winder machine may be present due to voice recognition software. Attending Provider Attestation/Addendum Face to face evaluation was performed by me. I have personally seen and examined the patient. I discussed the assessment and plan with the entire medicine team. I reviewed available medical records, imaging studies, laboratory results. I agree with the above subjective data, objective findings, assessment and plan except as corrected by me or noted below Acute renal failure, likely due to below Nephrotic syndrome Bilateral leg edema patient was sent to the emergency room from nephrology office , Plan for kidney biopsy?IR to be consulted. I believe they are not here tomorrow so may be day after tomorrow which can be done. More than > 30 minutes spent on the encounter
[2024-12-29 17:41] VITALS: PULSE 60; RESP 14; RESP 95
[2024-12-29 18:02] VITALS: BP 128/93; PULSE 58; RESP 15; TEMP 36.9; O2SAT 95
[2024-12-29 18:37] LABS: Uric Acid 7.8 mg/dL (3.7-9.2)
[2024-12-29 18:40] LABS: Parathyroid Hormone Intact 141.9 pg/ml (18.5-88.0)
[2024-12-29 18:43] LABS: Vitamin D 25 Hydroxy Total 7.6 ng/mL (7.3-40.2)
[2024-12-29 19:04] LABS: Ferritin 668 ng/mL (10.5-307.3); Iron 111 mcg/dL (65-175)
[2024-12-29 19:45] VITALS: BMI 23.4
[2024-12-29 20:00] VITALS: BP 130/94; PULSE 56; RESP 18; TEMP 36.1; O2SAT 97
[2024-12-30] VITALS (7 sets, daily range): BP systolic 122–134; BP diastolic 75–91; PULSE 52–90; RESP 16–92; TEMP 36.1–36.2; O2SAT 94–95
[2024-12-30 05:31] LABS: Basophils # (Auto) 0.1 Thou/mm3 (0.0-0.2); Basophils % (Auto) 1 % (0-2.5); Eosinophils # (Auto) 0.5 Thou/mm3 (0.0-0.5); Eosinophils % (Auto) 7 % (0-10); Hematocrit 38.4 % (41.0-53.0); Hemoglobin 13.9 g/dL (13.5-16.0); Immature Granulocytes % (Auto) 0 % (0-0); Immature Granulocytes Auto 0.01 Thou/mm3 (0.00-0.00); Lymphocytes # (Auto) 2.1 Thou/mm3 (1.0-4.8); Lymphocytes % (Auto) 30 % (10-50); Mean Corpuscular HGB Conc 36.2 g/dl (31.0-37.0); Mean Corpuscular Hemoglobin 30.7 pg (25.0-35.0); Mean Corpuscular Volume 85 fL (80-100); Monocytes # (Auto) 0.7 Thou/mm3 (0.0-0.8); Monocytes % (Auto) 10 % (0-12); Neutrophils # (Auto) 3.6 Thou/mm3 (1.8-7.7); Neutrophils % (Auto) 51 % (37-80); Nucleated Red Blood Cell % 0 /100 WBC (0); Platelet Count 231 Thou/mm3 (140-440); RDW Standard Deviation 35.7 fL (35.1-43.9); Red Blood Count 4.53 Miln/mm3 (4.50-5.90); White Blood Count 7.1 Thou/mm3 (3.8-10.6)
[2024-12-30 05:33] LABS: Prothrombin Time 10.6 Seconds (9.0-12.2)
[2024-12-30 05:39] LABS: Glucose Estimated Average 105 mg/dL (80-131); Hemoglobin A1C 5.3 % Hgb (4.8-6.0)
[2024-12-30 05:54] LABS: Alanine Aminotransferase 161 U/L (10-49); Albumin, Serum 2.1 gm/dL (3.5-5.0); Albumin/Globulin Ratio 1.2 (1.2-2.2); Alkaline Phosphatase 74 U/L (46-116); Anion Gap 7 (7-16); Aspartate Amino Transferase 132 U/L (0-34); BUN/Creatinine Ratio 18 Ratio (12-20); Bilirubin,Total 0.4 mg/dL (0.3-1.2); Blood Urea Nitrogen 35 mg/dL (9-23); Calcium 7.7 mg/dL (8.3-10.6); Calcium (Corrected) 9.2 mg/dL (8.5-10.1); Carbon Dioxide 29.4 mMol/L (20.0-31.0); Cardiac Risk Estimate 4.1 RATIO (4.0-6.7); Chloride 106 mMol/L (98-107); Cholesterol 261 mg/dL (132-200); Creatinine (Component) 1.9 mg/dL (0.6-1.3); Estimated Creatinine Clearance 58.2 mL/min (>60); Globulin 1.8 gm/dL (2.3-3.5); Glucose 109 mg/dL (74-106); HDL Cholesterol 63 mg/dL (40-60); LDL Cholesterol,Calculated 171 mg/dL (0-130); Magnesium 2.2 mg/dL (1.6-2.6); Osmolality,Calculated 292 (275-295); Potassium 3.7 mMol/L (3.4-5.1); Sodium 142 mMol/L (136-145); Total Protein 3.9 gm/dL (5.7-8.2); Triglycerides 135 mg/dL (30-150); eGFR 48 See Note
--- NOTE | 2024-12-30 09:24 | PC.SS ---
Follow up note: Kidney renal biopsy pending.
[2024-12-30] MEDS: ATORVASTATIN CALCIUM 20 MG TABLET 40 MG PO (09:52)
[2024-12-30 10:10] LABS: Thyroid Stimulating Hormone 6.26 uIU/mL (0.55-4.78)
[2024-12-30 10:14] LABS: Misc Send Out* See Sep Rpt
--- NOTE | 2024-12-30 10:19 | PC.SS ---
SS met with patient regarding his d/c plan. Pt is alert/oriented. Pt was admitted for ARF. Pt confirmed demographic and contact information is correct on facesheet. Pt resides with and kids. Pt ambulates independently without assistance or DME. Pt is ok with all ADLs. Pt is employed multimedia specialist. Patient?s pharmacy of choice is [facility] on [address]. Pt named his , Kristian Amezcua medical decision maker if he is unable. Patient?s choice is to return home upon d/c. will provide transportation. Pt states he is not diabetic and is not on dialysis. Pt followed up with PCP last week. D/C plan: Return home Next of Kin: Kristian Amezcua, , phone# [phone] PCP: Dr. Fabio Sorto from [facility] Address: Correct on facesheet
--- NOTE | 2024-12-30 11:11 | PD.RESCONSUL ---
HPI Data of Consult Consult date: 12/30/24 Requesting Physician: Lela Aviles MD Admitting Provider: Rancho De Jesus MD Attending Provider: Lela Aviles MD Primary Care Provider: Fabio Sorto MD Consult Narrative Reason for consult: EMORY, nephrotic syndrome History of present illness: Hans is a 29 y/o male with no pertinent PMHx who comes in from PCP office (Dr. Rollins) for an evaluation of possible nephrotic syndrome. Patient reports that about 3 weeks ago he came into the emergency room for an evaluation of lower extremity edema. He said that this has never happened to him before. He also said that he denied any recent travel, recent sicknesses or recent contacts prior to this happening. He denied any other symptoms associated with this, however he did say they he seen some foaming of the urine over this time. He also denied any recent weight loss. While he was in the ED he was told that he had some liver issues and was told to follow-up with his primary care doctor as well. He started to follow-up with some primary care doctors and had labs done and was then referred to Dr. Rollins for further evaluation of his kidney function. When discussed with his labs, he was unaware that there was protein developing in his urine, however he was aware that he had extremely high cholesterol (total cholesterol in the 400s) and he was taking Lipitor 40 mg, and he was also discharged from the ED with ibuprofen, Lasix and lisinopril 5 mg. He denies any family history of kidney disease including genetic or any of his family members being on hemodialysis. Denies any chest pain, shortness of breath, vision changes, numbness, tingling, confusion, headache. He denies a family history or personal history of hematologic disorders as well. ED Course: He arrived to the ED with a blood pressure of 153/93, heart rate 66, respiratory rate 18, temperature 98.3, saturating 98% on room air. He was worked up once found to have a hemoglobin of 13.8, BUN/creatinine of 40 and 2.1 respectively, glucose 170, GFR 42, AST ALT 126 and 159, BNP of 110, +3 blood in the urine, +3 protein, 19 RBCs, 9 white cells. Patient was given 1 L bolus normal saline in the ED. Medicine was consulted and patient was admitted to the floors PMHx: As above Surgeries: None Meds: Lipitor 40 mg, lisinopril 5 mg, Lasix 20 mg Allergies: No known allergies Family Hx: One of his brothers has cystic fibrosis, denies hx of hematologic, ESRD/HD or kidney disease Social Hx: Born and raised in [place] in the [place]. 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 Has been smoking weed since he was 16 years old. Has never been a heavy drinker. No history of oral IV drug use including heroin, cocaine. cc:: cc: Lela Aviles MD Review of Systems Review of Systems Narrative Review of Systems: Constitutional: No fever, chills, fatigue, weakness, weight loss HEENT: No eye pain, vision loss, ear pain, hearing loss, dysphagia, Cardiovascular: No chest pain, palpitations, pain with walking. Significant edema Respiratory: No cough, shortness of breath, wheezing GI: No NVD, abdominal pain, constipation, blood in stool, loss of appetite, heartburn Extremities: swelling in LE bilat MSK: No back pain, joint pain, joint swelling Neuro: No dizziness, numbness, weakness, headaches, seizures, tremors Psych: No anxiety, depression Past Medical History Past Medical History CARDIAC: Negative Cardiac Disorders or Congestive Heart Failure RESPIRATORY: Negative Chronic Obstructive Pulmonary Disease (COPD) or Asthma GENITOURINARY: Negative Renal Disease ENDOCRINE: Negative Diabetes Mellitus Type 1 or Diabetes Mellitus Type 2 HEMATOLOGIC: Negative Sickle Cell Disease OTHER HISTORY: Negative Autoimmune Disease Surgical History SURGICAL: Negative Ear Surgery Social History SMOKING STATUS: Never smoker Past Medical History Comments PMH COMMENT: PMH: As above PSHx: Denies Allergies: No known drug and food allergies Social history: -Smoking: Denies, positive for marijuana smoking daily -Alcohol Use: Occasional alcohol use -Illicit Drug Use: Denies Family History: Denies any family history of liver, kidney or heart disorders Exam Vital Signs Temp Pulse Resp BP Pulse Ox O2 Del Method 97.1 F 90 16 133/76 H 95 Room Air 12/30/24 08:00 12/30/24 08:00 12/30/24 08:00 12/30/24 08:00 12/30/24 08:00 12/30/24 08:00 Narrative Exam General: AAOx3, NAD, male HEENT: Moist mucous membranes, conjunctiva clear, EOMI, PERRLA, Cardiovascular: S1, S2, radial pulses +2 bilat, RRR Pulmonary: CTAB bilat no cough, no wheezing GI: No tenderness to light or deep palpitation, no guarding, rigidity, rebound tenderness or distension Extremities: Anasarca extending to Upper LE, bilat dorsalis pedis pulses +2 bilaterally Neuro: AAOx3, no focal motor or sensory deficits in the UE or LE bilat Psych: Good judgement, thought and behavior Results Labs 12/31/24 05:01 12/30/24 04:50 Labs: Short CBC 12/29/24 12/30/24 Range/Units 15:36 04:50 WBC 6.7 7.1 (3.8-10.6) Thou/mm3 Hgb 13.8 13.9 (13.5-16.0) g/dL Hct 38.6 L 38.4 L (41.0-53.0) % Plt Count 250 231 (140-440) Thou/mm3 BMP 12/29/24 12/30/24 15:36 04:50 Sodium 141 142 Potassium 3.8 3.7 Chloride 103 106 Carbon Dioxide 33.3 H 29.4 BUN 40 H 35 H Creatinine 2.1 H 1.9 H Glucose 117 H 109 H Calcium 7.7 L 7.7 L Liver Function 12/29/24 12/30/24 Range/Units 15:36 04:50 Total Bilirubin 0.2 L 0.4 (0.3-1.2) mg/dL AST 126 H 132 H (0-34) U/L ALT 159 H 161 H (10-49) U/L Alkaline Phosphatase 80 74 (46-116) U/L Albumin 2.4 L 2.1 L (3.5-5.0) gm/dL Urine 12/29/24 Range/Units 16:50 Urine Color Lt-Yellow (Lt Yel-Yel) Urine Clarity Clear (Clear/Hazy) Urine pH 6.5 (5.0-7.0) Ur Specific [place] 1.013 (1.001-1.035) Urine Protein 3+ A (Neg - Trace) Urine Glucose (UA) Negative (Negative) Quality Measures Quality Measures none Medications Home Medications and Allergies Home Medications ?Medication ?Instructions ?Recorded ?Confirmed ?Type bumetanide 2 mg tablet 2 mg PO QDAY 12/29/24 12/29/24 History Allergies Allergy/AdvReac Type Severity Reaction Status Date / Time No Known Allergies Allergy Verified 12/29/24 15:27 Visit Medications Acetaminophen (Acetaminophen 325 Mg Tablet) 650 mg PO Q6H PRN PRN Reason: Pain (1-3) & Fever >100.4 Stop: 01/28/25 17:25 Atorvastatin Calcium (Atorvastatin Calcium 20 Mg Tablet) 40 mg PO QDAY NANETTE Stop: 01/29/25 08:59 Last Admin: 12/30/24 09:52 Dose: 40 mg Ondansetron HCl (Ondansetron Inj 2 Mg/Ml Inj 2 Ml) 4 mg IVP Q6H PRN; Protocol PRN Reason: NAUSEA OR VOMITING Stop: 01/28/25 17:25 Sennosides (Senna Tablet) 1 tab PO QDAY PRN; Protocol PRN Reason: constipation Stop: 01/28/25 17:25 Discontinued Medications Atorvastatin Calcium (Atorvastatin Calcium 20 Mg Tablet) 40 mg PO HS NANETTE Stop: 01/28/25 20:59 Sodium Chloride (Ns 0.45%) 1,000 mls @ 150 mls/hr IV .Q6H40M NANETTE Stop: 01/28/25 16:25 Last Admin: 12/29/24 17:36 Dose: Not Given Sodium Chloride (Ns) 1,000 mls @ 999 mls/hr IV .Q1H1M ONE Stop: 12/29/24 17:28 Last Infusion: 12/29/24 18:02 Dose: Infused Assessment & Plan Plan Assessment Hans is a 29 y/o male with no pertinent PMHx who comes in from PCP office (Dr. Rollins) for an evaluation of possible nephrotic syndrome. 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 CT-guided renal biopsy ? 24-hour urine protein, creatinine ? Urine lytes and creatinine ? Pending biopsy for adequate treatment ? Trend with CMP ? Avoid nephrotoxic agents ? Renally dose medicines ? Follow-up complement, JAN, ceruloplasmin #Secondary hyperparathyroidism PTH 142 Calcium 9.2; phosphorous 4.0 25-Hydroxy Vitamin D 7.6 (Borderline low) This could be a manifestation of secondary hyperparathyroidism with CKD, loss of vitamin D binding protein which can be seen in nephrotic syndrome Plan: ? 24-hour urine calcium ? 24-hour urine protein ? Activated vitamin D ? Ionized calcium #Elevated TSH TSH 6.26 Thyroid hormones lost in conditions like nephrotic syndrome Unable to order thyroid binding globulin Total T4 and T3 which are bound forms will typically be low in nephrotic syndrome due to loss of thyroid binding globulin as opposed to free T3 and T4 Plan: ? Free thyroxine ? Total T3 ? Treat above #Elevated transaminases Diffuse fatty infiltration of liver seen on imaging Plan: ? Trend with CMP ? Avoid hepatotoxic agents ? Liver ultrasound #Hypertension #Hyperlipidemia Related to nephrotic syndrome Plan: ? Holding statin in setting of elevated transaminases ? Holding home blood pressure medicine at this time due to EMORY Patient seen and care discussed with my attending physician, Dr. Ria Lassiter, PGY-1 Attending Provider Attestation/Addendum Patient seen and examined with resident physician Dr. Miles, Note reviewed, agree with findings and recommendations. Patient with nephrotic syndrome (edema, hypoalbuminemia, hyperlipidemia, nephrotic range proteinuria) no history of diabetes, hypertension. Decided to proceed with kidney biopsy -Probably minimal-change versus FSGS. So far all serology negative. Once kidney biopsy done-he will need aspirin as nephrotic syndrome his hypercoagulable state. Hold statins due to elevated liver enzymes. Continue with diuretics. Care discussed with at bedside. Thank you Lela for allowing me to participate in the care of Mr. Amezcua CC: Dr. Sorto
[2024-12-30 11:13] LABS: Path Review Blood Smear Sent to Pathologist
--- NOTE | 2024-12-30 11:20 | ESPR_ITS ---
<Statement entered by Lela Aviles MD - 01/05/25 08:54> I reviewed above note and agree with findings and plans. I have also personally examined the patient with medicine team and went over assessment and plan with medical team including internal communications specialist and resident physician. Documentation for date of: 12/30/24 Subjective Subjective Interval history: Patient seen and examined at bedside today. Patient has no current complaints, continues to have edema. Patient is pending renal biopsy in a.m., will be n.p.o. after midnight, DVT prophylaxis deferred for now. Nephrology following patient. TSH 6.26, free T4 1.00 likely in setting of nephrotic syndrome, patient denies any symptoms of hypothyroidism. Atorvastatin held by nephrology however patient's transaminitis was noted prior to initiation of statins, further workup pending Pending urine studies. Exam Vital Signs Temp Pulse Resp BP Pulse Ox O2 Del Method 97.1 F 90 16 133/76 H 95 Room Air 12/30/24 08:00 12/30/24 08:00 12/30/24 08:00 12/30/24 08:00 12/30/24 08:00 12/30/24 08:00 Narrative Exam Physical Exam General: Awake and in no acute distress. Conversational and non-toxic appearing. HEENT: Normocephalic, atraumatic, mucous membranes moist. Heart: Regular rate and rhythm, no murmurs. Lungs: Clear to auscultation with no wheezing or crackles. Abdomen: Soft, nondistended, nontender, positive bowel sounds. ?No guarding or rebound tenderness. Neurologic: Alert and oriented x3, no gross neurological deficit, and patient able to move all 4 extremities. Extremities: 3+ bilateral lower extremity edema Skin: No rash or ecchymoses. Objective Labs 12/30/24 04:50 12/30/24 04:50 Labs: Laboratory Results - last 24 hr 12/29/24 12/29/24 12/29/24 15:36 16:50 18:05 WBC 6.7 RBC 4.53 Hgb 13.8 Hct 38.6 L MCV 85 MCH 30.5 MCHC 35.8 RDW Std Deviation 35.6 Plt Count 250 Neut % (Auto) 52 Lymph % (Auto) 33 [place] % (Auto) 8 Eos % (Auto) 5 Baso % (Auto) 1 Neut # (Auto) 3.4 Lymph # (Auto) 2.2 [place] # (Auto) 0.6 Eos # (Auto) 0.4 Baso # (Auto) 0.1 Immature Gran # (Auto) 0.01 H Absolute Nucleated RBC 0.00 Immature Gran % 0 Nucleated RBC % 0 Smear Path Review PT INR Sodium 141 Potassium 3.8 Chloride 103 Carbon Dioxide 33.3 H Anion Gap 5 L BUN 40 H Creatinine 2.1 H Estim Creat Clear Calc 45.8 L eGFR 42 L BUN/Creatinine Ratio [address] Glu mg/dL Hemoglobin A1c Calculated Osmolality 291 Uric Acid 7.8 Calcium 7.7 L Corrected Calcium 9.0 Phosphorus Magnesium Iron 111 Ferritin 668 H Total Bilirubin 0.2 L AST 126 H ALT 159 H Alkaline Phosphatase 80 B-Natriuretic Peptide 110 H Total Protein 4.1 L Albumin 2.4 L Globulin 1.7 L Albumin/Globulin Ratio 1.4 Triglycerides Cholesterol LDL Cholesterol, Calc HDL Cholesterol Cholesterol/HDL Ratio Lipase 34 25-OH Vitamin D Total 7.6 TSH PTH Intact 141.9 H Ur Collection Type Clean Catch Urine Color Lt-Yellow Urine Clarity Clear Urine pH 6.5 Ur Specific [place] 1.013 Urine Protein 3+ A Urine Glucose (UA) Negative Urine Ketones Negative Urine Blood 3+ A Urine Nitrite Negative Urine Bilirubin Negative Urine Urobilinogen (Auto) Negative Ur Leukocyte Esterase Negative Urine RBC 19 H Urine WBC 9 H Ur Squamous Epith Cells < 1 Urine Bacteria Rare Ur Culture Indicated? Not Indicated 12/30/24 04:50 WBC 7.1 RBC 4.53 Hgb 13.9 Hct 38.4 L MCV 85 MCH 30.7 MCHC 36.2 RDW Std Deviation 35.7 Plt Count 231 Neut % (Auto) 51 Lymph % (Auto) 30 [place] % (Auto) 10 Eos % (Auto) 7 Baso % (Auto) 1 Neut # (Auto) 3.6 Lymph # (Auto) 2.1 [place] # (Auto) 0.7 Eos # (Auto) 0.5 Baso # (Auto) 0.1 Immature Gran # (Auto) 0.01 H Absolute Nucleated RBC 0.00 Immature Gran % 0 Nucleated RBC % 0 Smear Path Review Sent to Pathologist PT 10.6 INR 1.0 Sodium 142 Potassium 3.7 Chloride 106 Carbon Dioxide 29.4 Anion Gap 7 BUN 35 H Creatinine 1.9 H Estim Creat Clear Calc 58.2 L eGFR 48 L BUN/Creatinine Ratio 18 [address]ucose [address] Glu mg/dL 105 Hemoglobin A1c 5.3 Calculated Osmolality 292 Uric Acid Calcium 7.7 L Corrected Calcium 9.2 Phosphorus 4.0 Magnesium 2.2 Iron Ferritin Total Bilirubin 0.4 AST 132 H ALT 161 H Alkaline Phosphatase 74 B-Natriuretic Peptide Total Protein 3.9 L Albumin 2.1 L Globulin 1.8 L Albumin/Globulin Ratio 1.2 Triglycerides 135 Cholesterol 261 H LDL Cholesterol, Calc 171 H HDL Cholesterol 63 H Cholesterol/HDL Ratio 4.1 Lipase 25-OH Vitamin D Total TSH 6.26 H PTH Intact Ur Collection Type Urine Color Urine Clarity Urine pH Ur Specific [place] Urine Protein Urine Glucose (UA) Urine Ketones Urine Blood Urine Nitrite Urine Bilirubin Urine Urobilinogen (Auto) Ur Leukocyte Esterase Urine RBC Urine WBC Ur Squamous Epith Cells Urine Bacteria Ur Culture Indicated? Quality Measures Quality Measures none Assessment & Plan Assessment Current Active Medications: Generic Name Dose Route Start Last Admin Trade Name Freq PRN Reason Stop Dose Admin Acetaminophen 650 mg 12/29/24 17:26 Acetaminophen 325 Mg Tablet PO 01/28/25 17:25 Q6H PRN Pain (1-3) & Fever >100.4 Atorvastatin Calcium 40 mg 12/30/24 09:00 12/30/24 09:52 Atorvastatin Calcium 20 Mg Tablet PO 01/29/25 08:59 40 mg QDAY NANETTE Administration Ondansetron HCl 4 mg 12/29/24 17:26 Ondansetron Inj 2 Mg/Ml Inj 2 Ml IVP 01/28/25 17:25 Q6H PRN NAUSEA OR VOMITING Protocol Sennosides 1 tab 12/29/24 17:26 Senna Tablet PO 01/28/25 17:25 QDAY PRN constipation Protocol Plan Assessment and plan: Summary: Mr. Amezcua is a 29-year-old male with past medical history of bilateral lower extremity edema, proteinuria, hematuria and suspected nephrotic syndrome who presented to [facility] emergency department on December 29, 2024 from nephrology office after being sent for acute kidney injury. Patient admitted to the hospital for further workup. #Acute Kidney Injury #Bilateral lower extremity edema #Hypoalbuminemia, proteinuria Suspicion of nephrotic syndrome Patient recently seen in the emergency department in November, was seen outpatient by nephrology today noted to have acute kidney injury. 12/29: BUN 40, creatinine 2.1, GFR 42 . Baseline BUN 21?28, creatinine 1.2, GFR more than 60 in November Patient had workup done outpatient, noted to have urine protein 3+ and blood 2+. Albumin 2.4, cholesterol 368, LDL 256 in November. Hepatitis panel, HIV nonreactive, ANCA screen negative, antimyeloperoxidase less than 1 Patient was started on atorvastatin, AR inhibitor and diuretics by PCP. Venous Doppler November 2024 negative for DVT, CT chest abdomen pelvis November 2024 shows primary hepatocellular disease such as acute hepatitis mild ascites, anasarca, hepatic colopathy and hepatic enteropathy, renal ultrasound November 2024 shows mild bilateral linear parenchymal scar formation Parathyroid 141, vitamin D 7.6-suspicion of secondary hyperparathyroidism Plan: - CT-guided biopsy, n.p.o. after midnight - Strict intake and output - Pending complement C3, C4 - Pending 24-hour urine creatinine, microalbumin and protein - Follow vitamin D studies - Renally dose medication, avoid nephrotoxic agent - Nephrology consulted, appreciate recommendations #Transaminitis Patient's AST/ALT noted to be chronically elevated, AST 126, ALT 159 on admission alk phos within normal limits Hepatitis panel noted to be negative CT abdomen pelvis from November shows acute hepatitis, primary hepatocellular disease Iron within normal limits, alpha-1 antitrypsin done previously normal, Elevated ferritin Plan: - Hold atorvastatin - Follow ceruloplasmin, JAN screen - Will consider liver ultrasound, however imaging was recently done - Follow CMP in a.m. - Will avoid hepatotoxic agents #Dyslipidemia #Hyperlipidemia Atorvastatin being held in setting of transaminitis. #THC dependence Patient smokes marijuana daily, U tox positive for THC, advised to abstain from daily marijuana use DVT prophylaxis: Not indicated, scheduled for biopsy GI prophylaxis: Not indicated Diet: Renal, n.p.o. after midnight Lines: Peripheral IV Code status: Full code Case discussed with Attending Dr. Obad. Bhavik Patel PGY1 Disclaimer: This note was dictated by speech recognition. Minor errors in family practice medical doctor may be present due to voice recognition software.
--- NOTE | 2024-12-30 11:49 | XR_ITS ---
Examination: Abdomen sonogram, Limited Date and time of exam: December 30, 2024 1312 hours INDICATIONS: Elevated liver function tests on laboratory examination today Technique: Real-time alfaro scale transabdominal sonographic images of the upper abdomen obtained. Findings: Contracted gallbladder no stones Common bile duct 0.4 cm Pancreatic head 3.9 cm Liver 12.1 cm free fluid around the liver Normal hepatopedal portal venous flow Patent IVC IMPRESSION: Negative for cholelithiasis, negative for cholecystitis Prominent pancreatic head clinical correlation advised
[2024-12-30 21:23] LABS: Creatinine,Urine 138 mg/dL (30-125)
[2024-12-30 21:26] LABS: Protein Total, Urine 849 mg/dL (1-14)
[2024-12-30 21:29] LABS: Creatinine, Urine Volume 690 mL/24hr (600-1800); Protein Total, 24 hr Urine 5858 mg/24hr (<149); Protein Total, Urine Volume 690 mL/24hr (600-1800)
[2024-12-31] VITALS (10 sets, daily range): BP systolic 115–128; BP diastolic 74–84; PULSE 55–86; RESP 16–95; TEMP 36.1–36.2; O2SAT 94–96; BMI 23.3
[2024-12-31 01:28] LABS: Chloride,Urine Random < 50.0 mMol/L (55.0-125.0); Creatinine,Random Urine > 60 mg/dL (30-125); Potassium,Urine Random > 10 mMol/L (12-62); Sodium,Urine Random < 50.0 mMol/L (20.0-110.0)
[2024-12-31 05:15] LABS: Calcium, Ionized 4.4 mg/dL (4.6-5.6)
[2024-12-31 05:30] LABS: Basophils # (Auto) 0.1 Thou/mm3 (0.0-0.2); Basophils % (Auto) 2 % (0-2.5); Eosinophils # (Auto) 0.6 Thou/mm3 (0.0-0.5); Eosinophils % (Auto) 9 % (0-10); Hematocrit 38.4 % (41.0-53.0); Hemoglobin 13.9 g/dL (13.5-16.0); Immature Granulocytes % (Auto) 0 % (0-0); Immature Granulocytes Auto 0.01 Thou/mm3 (0.00-0.00); Lymphocytes # (Auto) 2.2 Thou/mm3 (1.0-4.8); Lymphocytes % (Auto) 33 % (10-50); Mean Corpuscular HGB Conc 36.2 g/dl (31.0-37.0); Mean Corpuscular Hemoglobin 30.8 pg (25.0-35.0); Mean Corpuscular Volume 85 fL (80-100); Monocytes # (Auto) 0.6 Thou/mm3 (0.0-0.8); Monocytes % (Auto) 9 % (0-12); Neutrophils # (Auto) 3.1 Thou/mm3 (1.8-7.7); Neutrophils % (Auto) 48 % (37-80); Nucleated Red Blood Cell % 0 /100 WBC (0); Platelet Count 250 Thou/mm3 (140-440); Red Blood Count 4.52 Miln/mm3 (4.50-5.90); White Blood Count 6.5 Thou/mm3 (3.8-10.6)
[2024-12-31 05:47] LABS: Partial Thromboplastin Time 29.2 Seconds (22.0-36.0); Prothrombin Time 10.9 Seconds (9.0-12.2)
[2024-12-31 06:12] LABS: Alanine Aminotransferase 160 U/L (10-49); Albumin, Serum 1.9 gm/dL (3.5-5.0); Albumin/Globulin Ratio 1.4 (1.2-2.2); Alkaline Phosphatase 77 U/L (46-116); Anion Gap 3 (7-16); Aspartate Amino Transferase 121 U/L (0-34); BUN/Creatinine Ratio 23 Ratio (12-20); Bilirubin,Total 0.3 mg/dL (0.3-1.2); Blood Urea Nitrogen 43 mg/dL (9-23); Calcium 7.4 mg/dL (8.3-10.6); Calcium (Corrected) 9.1 mg/dL (8.5-10.1); Carbon Dioxide 30.5 mMol/L (20.0-31.0); Chloride 106 mMol/L (98-107); Creatinine (Component) 1.9 mg/dL (0.6-1.3); Estimated Creatinine Clearance 58.2 mL/min (>60); Globulin 1.4 gm/dL (2.3-3.5); Glucose 114 mg/dL (74-106); Magnesium 2.2 mg/dL (1.6-2.6); Osmolality,Calculated 289 (275-295); Phosphorous 3.6 mg/dL (2.4-5.1); Potassium 4.1 mMol/L (3.4-5.1); Sodium 139 mMol/L (136-145); Total Protein 3.3 gm/dL (5.7-8.2); eGFR 48 See Note
[2024-12-31] MEDS: ALBUMIN HUMAN 25% IVPB 25 GM/100 ML BTL IV ×2 (09:42→20:23)
[2024-12-31] MEDS: FUROSEMIDE INJ 10 MG/ML 4ML VIAL 40 MG IVP (10:54)
--- NOTE | 2024-12-31 13:37 | PC.NURSE ---
called Dr. Patel and informed him pt is asking for something for heartburn. Dr. Patel stated he will order some Maalox.
[2024-12-31] MEDS: FAMOTIDINE 20 MG TABLET PO (14:26)
--- NOTE | 2024-12-31 14:28 | ESPR_ITS ---
<Statement entered by Lela Aviles MD - 01/05/25 08:56> I reviewed above note and agree with findings and plans. I have also personally examined the patient with medicine team and went over assessment and plan with medical team including medical intern and resident physician. Documentation for date of: 12/31/24 Subjective Subjective Interval history: Patient seen examined at bedside. Complains of some indigestion, given famotidine x 1. Otherwise he has no current complaints, 24-hour urine protein significantly elevated, likely consistent with nephrotic syndrome. Nephrology is following case, started patient on IV albumin and IV furosemide, dietitian consulted. Patient is scheduled for biopsy with interventional radiology in a.m., n.p.o. after midnight. Exam Vital Signs Temp Pulse Resp BP Pulse Ox O2 Del Method 97.2 F 72 18 118/74 96 Room Air 12/31/24 12:00 12/31/24 12:00 12/31/24 12:00 12/31/24 12:00 12/31/24 12:12/31/24 12:00 Narrative Exam Physical Exam General: Awake and in no acute distress. Conversational and non-toxic appearing. HEENT: Normocephalic, atraumatic, mucous membranes moist. Heart: Regular rate and rhythm, no murmurs. Lungs: Clear to auscultation with no wheezing or crackles. Abdomen: Soft, nondistended, nontender, positive bowel sounds. ?No guarding or rebound tenderness. Neurologic: Alert and oriented x3, no gross neurological deficit, and patient able to move all 4 extremities. Extremities: 2+ bilateral lower extremity edema Skin: No rash or ecchymoses. Objective Labs 12/31/24 05:01 12/31/24 05:01 Labs: Laboratory Results - last 24 hr 12/30/24 12/30/24 12/30/24 20:45 20:45 21:00 WBC RBC Hgb Hct MCV MCH MCHC RDW Std Deviation Plt Count Neut % (Auto) Lymph % (Auto) [place] % (Auto) Eos % (Auto) Baso % (Auto) Neut # (Auto) Lymph # (Auto) [place] # (Auto) Eos # (Auto) Baso # (Auto) Immature Gran # (Auto) Absolute Nucleated RBC Immature Gran % Nucleated RBC % PT INR APTT Sodium Potassium Chloride Carbon Dioxide Anion Gap BUN Creatinine Estim Creat Clear Calc eGFR BUN/Creatinine Ratio Glucose Calculated Osmolality Calcium Corrected Calcium Ionized Calcium Phosphorus Magnesium Total Bilirubin AST ALT Alkaline Phosphatase Total Protein Albumin Globulin Albumin/Globulin Ratio Ur Random Creatinine > 60 Ur Random Sodium < 50.0 Ur Random Potassium > 10 L Ur Random Chloride < 50.0 L Urine Total Volume 690 690 Ur Creatinine mg% 138 H Ur Creatinine 24 Hour 1.0 U Total Protein mg/dL 849 H Ur Total Protein 24 Hr 5858 H 12/31/24 05:01 WBC 6.5 RBC 4.52 Hgb 13.9 Hct 38.4 L MCV 85 MCH 30.8 MCHC 36.2 RDW Std Deviation 36.0 Plt Count 250 Neut % (Auto) 48 Lymph % (Auto) 33 [place] % (Auto) 9 Eos % (Auto) 9 Baso % (Auto) 2 Neut # (Auto) 3.1 Lymph # (Auto) 2.2 [place] # (Auto) 0.6 Eos # (Auto) 0.6 H Baso # (Auto) 0.1 Immature Gran # (Auto) 0.01 H Absolute Nucleated RBC 0.00 Immature Gran % 0 Nucleated RBC % 0 PT 10.9 INR 1.0 APTT 29.2 Sodium 139 Potassium 4.1 Chloride 106 Carbon Dioxide 30.5 Anion Gap 3 L BUN 43 H Creatinine 1.9 H Estim Creat Clear Calc 58.2 L eGFR 48 L BUN/Creatinine Ratio 23 H Glucose 114 H Calculated Osmolality 289 Calcium 7.4 L Corrected Calcium 9.1 Ionized Calcium 4.4 L Phosphorus 3.6 Magnesium 2.2 Total Bilirubin 0.3 AST 121 H ALT 160 H Alkaline Phosphatase 77 Total Protein 3.3 L Albumin 1.9 L Globulin 1.4 L Albumin/Globulin Ratio 1.4 Ur Random Creatinine Ur Random Sodium Ur Random Potassium Ur Random Chloride Urine Total Volume Ur Creatinine mg% Ur Creatinine 24 Hour U Total Protein mg/dL Ur Total Protein 24 Hr Quality Measures Quality Measures none Assessment & Plan Assessment Current Active Medications: Generic Name Dose Route Start Last Admin Trade Name Freq PRN Reason Stop Dose Admin Acetaminophen 650 mg 12/29/24 17:26 Acetaminophen 325 Mg Tablet PO 01/28/25 17:25 Q6H PRN Pain (1-3) & Fever >100.4 Atorvastatin Calcium 40 mg 12/30/24 09:00 12/30/24 09:52 Atorvastatin Calcium 20 Mg Tablet PO 01/29/25 08:59 40 mg QDAY NANETTE Administration Furosemide 40 mg 12/31/24 09:00 12/31/24 10:54 Furosemide Inj 10 Mg/Ml 4ml Vial IVP 01/30/25 08:59 40 mg QDAY NANETTE Administration Albumin Human 25 gm in 100 mls @ 100 mls/hr 12/31/24 09:00 12/31/24 10:42 Albuminar-25 Ivpb IV 01/03/25 08:59 Infused BID NANETTE Infusion Ondansetron HCl 4 mg 12/29/24 17:26 Ondansetron Inj 2 Mg/Ml Inj 2 Ml IVP 01/28/25 17:25 Q6H PRN NAUSEA OR VOMITING Protocol Sennosides 1 tab 12/29/24 17:26 Senna Tablet PO 01/28/25 17:25 QDAY PRN constipation Protocol Plan Assessment and plan: Summary: Mr. Amezcua is a 29-year-old male with past medical history of bilateral lower extremity edema, proteinuria, hematuria and suspected nephrotic syndrome who presented to [facility] emergency department on December 29, 2024 from nephrology office after being sent for acute kidney injury. Patient admitted to the hospital for further workup. #Acute Kidney Injury #Nephrotic syndrome #Bilateral lower extremity edema #Hypoalbuminemia, proteinuria Patient recently seen in the emergency department in November, was seen outpatient by nephrology today noted to have acute kidney injury. 12/29: BUN 40, creatinine 2.1, GFR 42 . Baseline BUN 21?28, creatinine 1.2, GFR more than 60 in November Patient had workup done outpatient, noted to have urine protein 3+ and blood 2+. Albumin 2.4, cholesterol 368, LDL 256 in November. Hepatitis panel, HIV nonreactive, ANCA screen negative, antimyeloperoxidase less than 1 Patient was started on atorvastatin, AR inhibitor and diuretics by PCP. Venous Doppler November 2024 negative for DVT, CT chest abdomen pelvis November 2024 shows primary hepatocellular disease such as acute hepatitis mild ascites, anasarca, hepatic colopathy and hepatic enteropathy, renal ultrasound November 2024 shows mild bilateral linear parenchymal scar formation Parathyroid 141, vitamin D 7.6-suspicion of secondary hyperparathyroidism 24-hour urine protein 5858 mg, urine volume 690 cc Plan: - Started on IV albumin and IV Lasix, albumin to be administered 30 minutes before Lasix - CT-guided biopsy, n.p.o. after midnight - Strict intake and output - Pending complement C3, C4 - Follow vitamin D studies - Renally dose medication, avoid nephrotoxic agent - Nephrology consulted, appreciate recommendations #Transaminitis Patient's AST/ALT noted to be chronically elevated, AST 126, ALT 159 on admission alk phos within normal limits Hepatitis panel noted to be negative CT abdomen pelvis from November shows acute hepatitis, primary hepatocellular disease Iron within normal limits, alpha-1 antitrypsin done previously normal, Elevated ferritin Liver ultrasound negative for cholelithiasis, cholecystitis. Prominent pancreatic head noted. Plan: - Hold atorvastatin - Follow ceruloplasmin, JAN screen - Follow CMP in a.m. - Will avoid hepatotoxic agents #Dyslipidemia #Hyperlipidemia Atorvastatin being held in setting of transaminitis. #THC dependence Patient smokes marijuana daily, U tox positive for THC, advised to abstain from daily marijuana use DVT prophylaxis: Not indicated, scheduled for biopsy GI prophylaxis: Not indicated Diet: Renal, n.p.o. after midnight Lines: Peripheral IV Code status: Full code Case discussed with Attending Dr. Aviles. Bhavik Patel PGY1 Disclaimer: This note was dictated by speech recognition. Minor errors in real property appraiser may be present due to voice recognition software.
--- NOTE | 2024-12-31 15:29 | ESPR_ITS ---
Documentation for date of: 12/31/24 Subjective Subjective Interval history: Hans is a 29 y/o male with no pertinent PMHx who comes in from PCP office (Dr. Rollins) for an evaluation of possible nephrotic syndrome. Patient reports that about 3 weeks ago he came into the emergency room for an evaluation of lower extremity edema. He said that this has never happened to him before. He also said that he denied any recent travel, recent sicknesses or recent contacts prior to this happening. He denied any other symptoms associated with this, however he did say they he seen some foaming of the urine over this time. He also denied any recent weight loss. While he was in the ED he was told that he had some liver issues and was told to follow-up with his primary care doctor as well. He started to follow-up with some primary care doctors and had labs done and was then referred to Dr. Rollins for further evaluation of his kidney function. When discussed with his labs, he was unaware that there was protein developing in his urine, however he was aware that he had extremely high cholesterol (total cholesterol in the 400s) and he was taking Lipitor 40 mg, and he was also discharged from the ED with ibuprofen, Lasix and lisinopril 5 mg. He denies any family history of kidney disease including genetic or any of his family members being on hemodialysis. Denies any chest pain, shortness of breath, vision changes, numbness, tingling, confusion, headache. He denies a family history or personal history of hematologic disorders as well. ED Course: He arrived to the ED with a blood pressure of 153/93, heart rate 66, respiratory rate 18, temperature 98.3, saturating 98% on room air. He was worked up once found to have a hemoglobin of 13.8, BUN/creatinine of 40 and 2.1 respectively, glucose 170, GFR 42, AST ALT 126 and 159, BNP of 110, +3 blood in the urine, +3 protein, 19 RBCs, 9 white cells. Patient was given 1 L bolus normal saline in the ED. Medicine was consulted and patient was admitted to the floors 12/31/2024 Patient examined at bedside today. No acute overnight events. Patient reports he is doing well. He slept well. He is wondering when he can get his renal biopsy. His white count today 6.5, hemoglobin 14, sodium 139, potassium 4.1, chloride 106, bicarb 30, BUN/creatinine 43 and 1.9 respectively, calcium 9.1, phosphorus 3.6, magnesium 2.2, AST ALT 121 and 160 respectively. 24-hour urine protein showed 6 g. Exam Vital Signs Temp Pulse Resp BP Pulse Ox O2 Del Method 97.2 F 72 18 118/74 96 Room Air 12/31/24 12:00 12/31/24 12:00 12/31/24 12:00 12/31/24 12:00 12/31/24 12:00 12/31/24 12:00 Narrative Exam General: AAOx3, NAD, male HEENT: Moist mucous membranes, conjunctiva clear, EOMI, PERRLA, Cardiovascular: S1, S2, radial pulses +2 bilat, RRR Pulmonary: CTAB bilat no cough, no wheezing GI: No tenderness to light or deep palpitation, no guarding, rigidity, rebound tenderness or distension Extremities: Anasarca extending to Upper LE, bilat dorsalis pedis pulses +2 bilaterally Neuro: AAOx3, no focal motor or sensory deficits in the UE or LE bilat Psych: Good judgement, thought and behavior Objective Labs 12/31/24 05:01 12/31/24 05:01 Labs: Laboratory Results - last 24 hr 12/30/24 12/30/24 12/30/24 20:45 20:45 21:00 WBC RBC Hgb Hct MCV MCH MCHC RDW Std Deviation Plt Count Neut % (Auto) Lymph % (Auto) [place] % (Auto) Eos % (Auto) Baso % (Auto) Neut # (Auto) Lymph # (Auto) [place] # (Auto) Eos # (Auto) Baso # (Auto) Immature Gran # (Auto) Absolute Nucleated RBC Immature Gran % Nucleated RBC % PT INR APTT Sodium Potassium Chloride Carbon Dioxide Anion Gap BUN Creatinine Estim Creat Clear Calc eGFR BUN/Creatinine Ratio Glucose Calculated Osmolality Calcium Corrected Calcium Ionized Calcium Phosphorus Magnesium Total Bilirubin AST ALT Alkaline Phosphatase Total Protein Albumin Globulin Albumin/Globulin Ratio Ur Random Creatinine > 60 Ur Random Sodium < 50.0 Ur Random Potassium > 10 L Ur Random Chloride < 50.0 L Urine Total Volume 690 690 Ur Creatinine mg% 138 H Ur Creatinine 24 Hour 1.0 U Total Protein mg/dL 849 H Ur Total Protein 24 Hr 5858 H 12/31/24 05:01 WBC 6.5 RBC 4.52 Hgb 13.9 Hct 38.4 L MCV 85 MCH 30.8 MCHC 36.2 RDW Std Deviation 36.0 Plt Count 250 Neut % (Auto) 48 Lymph % (Auto) 33 [place] % (Auto) 9 Eos % (Auto) 9 Baso % (Auto) 2 Neut # (Auto) 3.1 Lymph # (Auto) 2.2 [place] # (Auto) 0.6 Eos # (Auto) 0.6 H Baso # (Auto) 0.1 Immature Gran # (Auto) 0.01 H Absolute Nucleated RBC 0.00 Immature Gran % 0 Nucleated RBC % 0 PT 10.9 INR 1.0 APTT 29.2 Sodium 139 Potassium 4.1 Chloride 106 Carbon Dioxide 30.5 Anion Gap 3 L BUN 43 H Creatinine 1.9 H Estim Creat Clear Calc 58.2 L eGFR 48 L BUN/Creatinine Ratio 23 H Glucose 114 H Calculated Osmolality 289 Calcium 7.4 L Corrected Calcium 9.1 Ionized Calcium 4.4 L Phosphorus 3.6 Magnesium 2.2 Total Bilirubin 0.3 AST 121 H ALT 160 H Alkaline Phosphatase 77 Total Protein 3.3 L Albumin 1.9 L Globulin 1.4 L Albumin/Globulin Ratio 1.4 Ur Random Creatinine Ur Random Sodium Ur Random Potassium Ur Random Chloride Urine Total Volume Ur Creatinine mg% Ur Creatinine 24 Hour U Total Protein mg/dL Ur Total Protein 24 Hr Quality Measures Quality Measures none Assessment & Plan Assessment Current Active Medications: Generic Name Dose Route Start Last Admin Trade Name Freq PRN Reason Stop Dose Admin Acetaminophen 650 mg 12/29/24 17:26 Acetaminophen 325 Mg Tablet PO 01/28/25 17:25 Q6H PRN Pain (1-3) & Fever >100.4 Atorvastatin Calcium 40 mg 12/30/24 09:00 12/30/24 09:52 Atorvastatin Calcium 20 Mg Tablet PO 01/29/25 08:59 40 mg QDAY NANETTE Administration Furosemide 40 mg 12/31/24 09:00 12/31/24 10:54 Furosemide Inj 10 Mg/Ml 4ml Vial IVP 01/30/25 08:59 40 mg QDAY NANETTE Administration Albumin Human 25 gm in 100 mls @ 100 mls/hr 12/31/24 09:00 12/31/24 10:42 Albuminar-25 Ivpb IV 01/03/25 08:59 Infused BID NANETTE Infusion Ondansetron HCl 4 mg 12/29/24 17:26 Ondansetron Inj 2 Mg/Ml Inj 2 Ml IVP 01/28/25 17:25 Q6H PRN NAUSEA OR VOMITING Protocol Sennosides 1 tab 12/29/24 17:26 Senna Tablet PO 01/28/25 17:25 QDAY PRN constipation Protocol Plan Assessment Hans is a 29 y/o male with no pertinent PMHx who comes in from PCP office (Dr. Rollins) for an evaluation of possible nephrotic syndrome. 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 Diuresis with 40 Lasix IV daily with albumin 25 g twice daily for 3 days ? CT-guided renal biopsy tomorrow ? Pending biopsy for adequate treatment ? Trend with CMP ? Avoid nephrotoxic agents ? Renally dose medicines ? Follow-up complement, JAN, ceruloplasmin #Secondary hyperparathyroidism PTH 142 Calcium 9.2; phosphorous 4.0 25-Hydroxy Vitamin D 7.6 (Borderline low) This could be a manifestation of secondary hyperparathyroidism with CKD, loss of vitamin D binding protein which can be seen in nephrotic syndrome Ionized calcium slightly low at 4.4 Plan: ? Follow-up 24-hour urine calcium ? Follow-up activated vitamin D #Elevated TSH TSH 6.26 Thyroid hormones lost in conditions like nephrotic syndrome Unable to order thyroid binding globulin Total T4 and T3 which are bound forms will typically be low in nephrotic syndrome due to loss of thyroid binding globulin as opposed to free T3 and T4 Free thyroxine normal Plan: ? Free thyroxine ? F/u Total T3 ? Treat above #Elevated transaminases, improving #Prominent pancreatic head Diffuse fatty infiltration of liver seen on imaging Liver ultrasound shows prominent pancreatic head and fluid around liver Plan: ? Trend with CMP ? Avoid hepatotoxic agents ? Consider MRI for pancreatic head workup #Hypertension #Hyperlipidemia Related to nephrotic syndrome Plan: ? Holding statin in setting of elevated transaminases ? Holding home blood pressure medicine at this time due to EMORY Patient seen and care discussed with my attending physician, Dr. Ria Lassiter, PGY-1 Attending Provider Attestation/Addendum Patient seen and examined with resident physician Dr. Miles, Note reviewed, agree with findings and recommendations. Patient with nephrotic syndrome (edema, hypoalbuminemia, hyperlipidemia, nephrotic range proteinuria) no history of diabetes, hypertension. Decided to proceed with kidney biopsy -Probably minimal-change versus FSGS. So far all serology negative. Once kidney biopsy done-he will need aspirin as nephrotic syndrome his hypercoagulable state. Hold statins due to elevated liver enzymes. Continue with diuretics. Care discussed with at bedside. Bx in am Thank you Lela for allowing me to participate in the care of Mr. Amezcua
[2025-01-01] VITALS (25 sets, daily range): BP systolic 117–143; BP diastolic 81–94; PULSE 51–73; RESP 10–96; TEMP 36.1–36.6; O2SAT 54–99
--- NOTE | 2025-01-01 05:00 | XR_ITS ---
Examination: CT-guided percutaneous medical renal biopsy lower pole right kidney CT abdomen without intravenous contrast Date and time of procedure: January 01, 2025 0928 hours INDICATIONS: Renal failure, nephrotic syndrome Informed consent provided. A timeout was completed verifying correct patient, procedure, site and positioning. Technique: Axial 3 mm sections were obtained for localization of the lower right kidney Appropriate area is marked. The patient's site was prepped and draped in sterile fashion Maximal sterile barrier technique utilized, including hand hygiene Local anesthesia was obtained with 1% lidocaine. Low dose protocols were performed. One or more of the following dose reduction techniques were used; automated exposure control, adjustment of the mA and/or KV according to patient size, use of iterative reconstruction technique. Utilizing CT fluoroscopic guidance 2 18-gauge core needle biopsies obtained of the lower pole right kidney Patient appears in stable condition during this procedure. At completion of the procedure, the patient is in satisfactory condition. Estimated blood loss 2 cc Complete pathology report to follow. Impression: Successful CT-guided percutaneous medical renal biopsy lower pole right kidney
[2025-01-01 05:48] LABS: Basophils # (Auto) 0.1 Thou/mm3 (0.0-0.2); Basophils % (Auto) 2 % (0-2.5); Eosinophils # (Auto) 0.5 Thou/mm3 (0.0-0.5); Eosinophils % (Auto) 8 % (0-10); Hematocrit 37.7 % (41.0-53.0); Hemoglobin 13.1 g/dL (13.5-16.0); Immature Granulocytes % (Auto) 0 % (0-0); Immature Granulocytes Auto 0.01 Thou/mm3 (0.00-0.00); Lymphocytes # (Auto) 2.4 Thou/mm3 (1.0-4.8); Lymphocytes % (Auto) 35 % (10-50); Mean Corpuscular HGB Conc 34.7 g/dl (31.0-37.0); Mean Corpuscular Hemoglobin 30.4 pg (25.0-35.0); Mean Corpuscular Volume 88 fL (80-100); Monocytes # (Auto) 0.7 Thou/mm3 (0.0-0.8); Monocytes % (Auto) 10 % (0-12); Neutrophils # (Auto) 3.1 Thou/mm3 (1.8-7.7); Neutrophils % (Auto) 46 % (37-80); Nucleated Red Blood Cell % 0 /100 WBC (0); Platelet Count 225 Thou/mm3 (140-440); RDW Standard Deviation 37.2 fL (35.1-43.9); Red Blood Count 4.31 Miln/mm3 (4.50-5.90); White Blood Count 6.8 Thou/mm3 (3.8-10.6)
[2025-01-01 05:55] LABS: Partial Thromboplastin Time 29.9 Seconds (22.0-36.0); Prothrombin Time 10.7 Seconds (9.0-12.2)
[2025-01-01 06:22] LABS: Alanine Aminotransferase 130 U/L (10-49); Albumin, Serum 2.5 gm/dL (3.5-5.0); Albumin/Globulin Ratio 1.6 (1.2-2.2); Alkaline Phosphatase 65 U/L (46-116); Anion Gap 5 (7-16); Aspartate Amino Transferase 100 U/L (0-34); BUN/Creatinine Ratio 19 Ratio (12-20); Bilirubin,Total 0.3 mg/dL (0.3-1.2); Blood Urea Nitrogen 33 mg/dL (9-23); Calcium 8.1 mg/dL (8.3-10.6); Calcium (Corrected) 9.3 mg/dL (8.5-10.1); Carbon Dioxide 30.6 mMol/L (20.0-31.0); Chloride 107 mMol/L (98-107); Creatinine (Component) 1.7 mg/dL (0.6-1.3); Globulin 1.6 gm/dL (2.3-3.5); Glucose 110 mg/dL (74-106); Magnesium 2.5 mg/dL (1.6-2.6); Osmolality,Calculated 293 (275-295); Phosphorous 3.6 mg/dL (2.4-5.1); Potassium 4.5 mMol/L (3.4-5.1); Sodium 143 mMol/L (136-145); Total Protein 4.1 gm/dL (5.7-8.2); eGFR 55 See Note
[2025-01-01] MEDS: ALBUMIN HUMAN 25% IVPB 25 GM/100 ML BTL IV ×2 (08:53→20:38)
[2025-01-01] MEDS: ACETAMINOPHEN 325 MG TABLET 650 MG PO (08:59)
--- NOTE | 2025-01-01 09:05 | PC.SS ---
Follow up note: Kidney biopsy today. Pt will return home upon dc.
--- NOTE | 2025-01-01 09:25 | ESPR_ITS ---
Documentation for date of: 01/01/25 Subjective Subjective Interval history: Hans is a 29 y/o male with no pertinent PMHx who comes in from PCP office (Dr. Rollins) for an evaluation of possible nephrotic syndrome. Patient reports that about 3 weeks ago he came into the emergency room for an evaluation of lower extremity edema. He said that this has never happened to him before. He also said that he denied any recent travel, recent sicknesses or recent contacts prior to this happening. He denied any other symptoms associated with this, however he did say they he seen some foaming of the urine over this time. He also denied any recent weight loss. While he was in the ED he was told that he had some liver issues and was told to follow-up with his primary care doctor as well. He started to follow-up with some primary care doctors and had labs done and was then referred to Dr. Rollins for further evaluation of his kidney function. When discussed with his labs, he was unaware that there was protein developing in his urine, however he was aware that he had extremely high cholesterol (total cholesterol in the 400s) and he was taking Lipitor 40 mg, and he was also discharged from the ED with ibuprofen, Lasix and lisinopril 5 mg. He denies any family history of kidney disease including genetic or any of his family members being on hemodialysis. Denies any chest pain, shortness of breath, vision changes, numbness, tingling, confusion, headache. He denies a family history or personal history of hematologic disorders as well. ED Course: He arrived to the ED with a blood pressure of 153/93, heart rate 66, respiratory rate 18, temperature 98.3, saturating 98% on room air. He was worked up once found to have a hemoglobin of 13.8, BUN/creatinine of 40 and 2.1 respectively, glucose 170, GFR 42, AST ALT 126 and 159, BNP of 110, +3 blood in the urine, +3 protein, 19 RBCs, 9 white cells. Patient was given 1 L bolus normal saline in the ED. Medicine was consulted and patient was admitted to the floors 12/31/2024 Patient examined at bedside today. No acute overnight events. Patient reports he is doing well. He slept well. He is wondering when he can get his renal biopsy. His white count today 6.5, hemoglobin 14, sodium 139, potassium 4.1, chloride 106, bicarb 30, BUN/creatinine 43 and 1.9 respectively, calcium 9.1, phosphorus 3.6, magnesium 2.2, AST ALT 121 and 160 respectively. 24-hour urine protein showed 6 g. 01/01/2025, patient examined at bedside, noted improvement in lower extremity edema, pending renal biopsy today. Patient can be discharged home after renal biopsy, recommended starting patient on the following medications on discharge after the biopsy, if patient is able to urinate normally : Calcitriol 0.25 mg daily, losartan 50 mg daily, aspirin 81 mg daily, pravastatin 20 mg daily, continue diuresis with bumetanide. Dietitian consult and high-protein diet. Exam Vital Signs Temp Pulse Resp BP Pulse Ox O2 Del Method 96.9 F 56 L 19 132/83 H 96 Room Air 01/01/25 08:00 01/01/25 08:00 01/01/25 08:00 01/01/25 08:00 01/01/25 08:00 01/01/25 08:00 Narrative Exam General: AAOx3, NAD, male HEENT: Moist mucous membranes, conjunctiva clear, EOMI, PERRLA, Cardiovascular: S1, S2, radial pulses +2 bilat, RRR Pulmonary: CTAB bilat no cough, no wheezing GI: No tenderness to light or deep palpitation, no guarding, rigidity, rebound tenderness or distension Extremities: Anasarca extending to Upper LE, bilat dorsalis pedis pulses +2 bilaterally Neuro: AAOx3, no focal motor or sensory deficits in the UE or LE bilat Psych: Good judgement, thought and behavior Objective Labs 01/02/25 04:15 01/02/25 04:15 Labs: Laboratory Results - last 24 hr 01/01/25 05:16 WBC 6.8 RBC 4.31 L Hgb 13.1 L Hct 37.7 L MCV 88 MCH 30.4 MCHC 34.7 RDW Std Deviation 37.2 Plt Count 225 Neut % (Auto) 46 Lymph % (Auto) 35 [place] % (Auto) 10 Eos % (Auto) 8 Baso % (Auto) 2 Neut # (Auto) 3.1 Lymph # (Auto) 2.4 [place] # (Auto) 0.7 Eos # (Auto) 0.5 Baso # (Auto) 0.1 Immature Gran # (Auto) 0.01 H Absolute Nucleated RBC 0.00 Immature Gran % 0 Nucleated RBC % 0 PT 10.7 INR 1.0 APTT 29.9 Sodium 143 Potassium 4.5 Chloride 107 Carbon Dioxide 30.6 Anion Gap 5 L BUN 33 H Creatinine 1.7 H Estim Creat Clear Calc 65.0 eGFR 55 L BUN/Creatinine Ratio 19 Glucose 110 H Calculated Osmolality 293 Calcium 8.1 L Corrected Calcium 9.3 Phosphorus 3.6 Magnesium 2.5 Total Bilirubin 0.3 AST 100 H ALT 130 H Alkaline Phosphatase 65 Total Protein 4.1 L Albumin 2.5 L D Globulin 1.6 L Albumin/Globulin Ratio 1.6 Quality Measures Quality Measures none Assessment & Plan Assessment Current Active Medications: Generic Name Dose Route Start Last Admin Trade Name Freq PRN Reason Stop Dose Admin Acetaminophen 650 mg 12/29/24 17:26 01/01/25 08:59 Acetaminophen 325 Mg Tablet PO 01/28/25 17:25 650 mg Q6H PRN Administration Pain (1-3) & Fever >100.4 Aspirin 81 mg 01/02/25 09:00 Aspirin Ec 81 Mg Tabec PO 02/01/25 08:59 QDAY NANETTE Calcitriol 0.25 mcg 01/01/25 09:15 Calcitriol 0.25 Mcg Capsule PO 01/31/25 09:14 QDAY NANETTE Furosemide 40 mg 12/31/24 09:00 12/31/24 10:54 Furosemide Inj 10 Mg/Ml 4ml Vial IVP 01/30/25 08:59 40 mg QDAY NANETTE Administration Albumin Human 25 gm in 100 mls @ 100 mls/hr 12/31/24 09:00 01/01/25 08:53 Albuminar-25 Ivpb IV 01/03/25 08:59 100 mls/hr BID NANETTE Administration Ondansetron HCl 4 mg 12/29/24 17:26 Ondansetron Inj 2 Mg/Ml Inj 2 Ml IVP 01/28/25 17:25 Q6H PRN NAUSEA OR VOMITING Protocol Pravastatin Sodium 20 mg 01/01/25 21:00 Pravastatin Sodium 10 Mg Tablet PO 01/31/25 20:59 HS NANETTE Sennosides 1 tab 12/29/24 17:26 Senna Tablet PO 01/28/25 17:25 QDAY PRN constipation Protocol Plan Assessment Hans is a 29 y/o male with no pertinent PMHx who comes in from PCP office (Dr. Rollins) for an evaluation of possible nephrotic syndrome. 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 Patient can be discharged home after renal biopsy, recommended starting patient on the following medications on discharge after the biopsy, if patient is able to urinate normally : Calcitriol 0.25 mg daily, losartan 50 mg daily, aspirin 81 mg daily, pravastatin 20 mg daily, continue diuresis with bumetanide. Dietitian consult and high-protein diet. Plan: ? Diuresis with 40 Lasix IV daily with albumin 25 g twice daily for 3 days ? CT-guided renal biopsy today ? Pending biopsy for adequate treatment ? Trend with CMP ? Avoid nephrotoxic agents ? Renally dose medicines ? Follow-up complement, JAN, ceruloplasmin #Secondary hyperparathyroidism PTH 142 Calcium 9.2; phosphorous 4.0 25-Hydroxy Vitamin D 7.6 (Borderline low) This could be a manifestation of secondary hyperparathyroidism with CKD, loss of vitamin D binding protein which can be seen in nephrotic syndrome Ionized calcium slightly low at 4.4 Plan: ? Follow-up 24-hour urine calcium ? Follow-up activated vitamin D #Elevated TSH TSH 6.26 Thyroid hormones lost in conditions like nephrotic syndrome Unable to order thyroid binding globulin Total T4 and T3 which are bound forms will typically be low in nephrotic syndrome due to loss of thyroid binding globulin as opposed to free T3 and T4 Free thyroxine normal Plan: ? Free thyroxine ? F/u Total T3 ? Treat above #Elevated transaminases, improving #Prominent pancreatic head Diffuse fatty infiltration of liver seen on imaging Liver ultrasound shows prominent pancreatic head and fluid around liver Plan: ? Trend with CMP ? Avoid hepatotoxic agents ? Consider MRI for pancreatic head workup #Hypertension #Hyperlipidemia Related to nephrotic syndrome Plan: ? Holding statin in setting of elevated transaminases ? Holding home blood pressure medicine at this time due to EMORY Patient seen and care discussed with my attending physician, Dr. Ria Gonzalez PGY 2 Attending Provider Attestation/Addendum Patient seen and examined with resident physician Dr. Gonzalez, Note reviewed, agree with findings and recommendations. Patient with nephrotic syndrome (edema, hypoalbuminemia, hyperlipidemia, nephrotic range proteinuria) no history of diabetes, hypertension. Decided to proceed with kidney biopsy -Probably minimal-change versus FSGS. So far all serology negative. Once kidney biopsy done-he will need aspirin as nephrotic syndrome his hypercoagulable state. Added pravastatin due to elevated liver enzymes. Continue with diuretics. Care discussed with at bedside. Had low-dose ARB for proteinuria Added calcitriol for hyperparathyroidism Renal biopsy scheduled for today
[2025-01-01] MEDS: fentaNYL CIT INJ 50 mCg/ML AMP 2ML 75 MCG IVP (09:50)
[2025-01-01] MEDS: CALCITRIOL 0.25 mCg CAPSULE PO (11:22)
[2025-01-01] MEDS: FUROSEMIDE INJ 10 MG/ML 4ML VIAL 40 MG IVP (11:22)
--- NOTE | 2025-01-01 18:03 | ESPR_ITS ---
<Statement entered by Lela Aviles MD - 01/05/25 08:57> I reviewed above note and agree with findings and plans. I have also personally examined the patient with medicine team and went over assessment and plan with medical team including architect intern and resident physician. Documentation for date of: 01/01/25 Subjective Subjective Interval history: Patient seen and examined at bedside. Patient is pending renal biopsy today. Improvement in renal function noted with IV Lasix and IV albumin. 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 Exam Vital Signs Temp Pulse Resp BP Pulse Ox O2 Del Method 97.9 F 61 18 126/88 H 58 L Room Air 01/01/25 16:00 01/01/25 16:00 01/01/25 16:00 01/01/25 16:01/01/25 16:01/01/25 16:00 Narrative Exam Physical Exam General: Awake and in no acute distress. Conversational and non-toxic appearing. HEENT: Normocephalic, atraumatic, mucous membranes moist. Heart: Regular rate and rhythm, no murmurs. Lungs: Clear to auscultation with no wheezing or crackles. Abdomen: Soft, nondistended, nontender, positive bowel sounds. ?No guarding or rebound tenderness. Neurologic: Alert and oriented x3, no gross neurological deficit, and patient able to move all 4 extremities. Extremities: 2+ bilateral lower extremity edema, 1+ bilateral lower extremity edema thighs Skin: No rash or ecchymoses. Objective Labs 01/01/25 05:16 01/01/25 05:16 Labs: Laboratory Results - last 24 hr 01/01/25 05:16 WBC 6.8 RBC 4.31 L Hgb 13.1 L Hct 37.7 L MCV 88 MCH 30.4 MCHC 34.7 RDW Std Deviation 37.2 Plt Count 225 Neut % (Auto) 46 Lymph % (Auto) 35 [place] % (Auto) 10 Eos % (Auto) 8 Baso % (Auto) 2 Neut # (Auto) 3.1 Lymph # (Auto) 2.4 [place] # (Auto) 0.7 Eos # (Auto) 0.5 Baso # (Auto) 0.1 Immature Gran # (Auto) 0.01 H Absolute Nucleated RBC 0.00 Immature Gran % 0 Nucleated RBC % 0 PT 10.7 INR 1.0 APTT 29.9 Sodium 143 Potassium 4.5 Chloride 107 Carbon Dioxide 30.6 Anion Gap 5 L BUN 33 H Creatinine 1.7 H Estim Creat Clear Calc 65.0 eGFR 55 L BUN/Creatinine Ratio 19 Glucose 110 H Calculated Osmolality 293 Calcium 8.1 L Corrected Calcium 9.3 Phosphorus 3.6 Magnesium 2.5 Total Bilirubin 0.3 AST 100 H ALT 130 H Alkaline Phosphatase 65 Total Protein 4.1 L Albumin 2.5 L D Globulin 1.6 L Albumin/Globulin Ratio 1.6 Quality Measures Quality Measures none Assessment & Plan Assessment Current Active Medications: Generic Name Dose Route Start Last Admin Trade Name Freq PRN Reason Stop Dose Admin Acetaminophen 650 mg 12/29/24 17:26 01/01/25 08:59 Acetaminophen 325 Mg Tablet PO 01/28/25 17:25 650 mg Q6H PRN Administration Pain (1-3) & Fever >100.4 Aspirin 81 mg 01/02/25 09:00 Aspirin Ec 81 Mg Tabec PO 02/01/25 08:59 QDAY NANETTE Calcitriol 0.25 mcg 01/01/25 09:15 01/01/25 11:22 Calcitriol 0.25 Mcg Capsule PO 01/31/25 09:14 0.25 mcg QDAY NANETTE Administration Furosemide 40 mg 12/31/24 09:00 01/01/25 11:22 Furosemide Inj 10 Mg/Ml 4ml Vial IVP 01/30/25 08:59 40 mg QDAY NANETTE Administration Albumin Human 25 gm in 100 mls @ 100 mls/hr 12/31/24 09:00 01/01/25 10:40 Albuminar-25 Ivpb IV 01/03/25 08:59 Infused BID NANETTE Infusion Losartan Potassium 50 mg 01/02/25 09:00 Losartan Potassium 25 Mg Tablet PO 02/01/25 08:59 QDAY NANETTE Ondansetron HCl 4 mg 12/29/24 17:26 Ondansetron Inj 2 Mg/Ml Inj 2 Ml IVP 01/28/25 17:25 Q6H PRN NAUSEA OR VOMITING Protocol Pravastatin Sodium 20 mg 01/01/25 21:00 Pravastatin Sodium 10 Mg Tablet PO 01/31/25 20:59 HS NANETTE Sennosides 1 tab 12/29/24 17:26 Senna Tablet PO 01/28/25 17:25 QDAY PRN constipation Protocol Plan Assessment and plan: Summary: Mr. Amezcua is a 29-year-old male with past medical history of bilateral lower extremity edema, proteinuria, hematuria and suspected nephrotic syndrome who presented to [facility] emergency department on December 29, 2024 from nephrology office after being sent for acute kidney injury. Patient admitted to the hospital for further workup. #Acute Kidney Injury #Nephrotic syndrome #Bilateral lower extremity edema #Hypoalbuminemia, proteinuria Patient recently seen in the emergency department in November, was seen outpatient by nephrology today noted to have acute kidney injury. 12/29: BUN 40, creatinine 2.1, GFR 42 . Baseline BUN 21?28, creatinine 1.2, GFR more than 60 in November Patient had workup done outpatient, noted to have urine protein 3+ and blood 2+. Albumin 2.4, cholesterol 368, LDL 256 in November. Hepatitis panel, HIV nonreactive, ANCA screen negative, antimyeloperoxidase less than 1 Patient was started on atorvastatin, AR inhibitor and diuretics by PCP. Venous Doppler November 2024 negative for DVT, CT chest abdomen pelvis November 2024 shows primary hepatocellular disease such as acute hepatitis mild ascites, anasarca, hepatic colopathy and hepatic enteropathy, renal ultrasound November 2024 shows mild bilateral linear parenchymal scar formation Parathyroid 141, vitamin D 7.6-suspicion of secondary hyperparathyroidism 24-hour urine protein 5858 mg, urine volume 690 cc Plan: - Started on IV albumin and IV Lasix, albumin to be administered 30 minutes before Lasix - CT-guided biopsy, n.p.o. currently - Strict intake and output - Pending complement C3, C4 - Follow vitamin D studies - Renally dose medication, avoid nephrotoxic agent - Nephrology consulted, appreciate recommendations #Transaminitis Patient's AST/ALT noted to be chronically elevated, AST 126, ALT 159 on admission alk phos within normal limits Hepatitis panel noted to be negative CT abdomen pelvis from November shows acute hepatitis, primary hepatocellular disease Iron within normal limits, alpha-1 antitrypsin done previously normal, Elevated ferritin Liver ultrasound negative for cholelithiasis, cholecystitis. Prominent pancreatic head noted. Plan: - Hold atorvastatin - Follow ceruloplasmin, JAN screen - Follow CMP in a.m. - Will avoid hepatotoxic agents #Dyslipidemia #Hyperlipidemia Atorvastatin being held in setting of transaminitis. #THC dependence Patient smokes marijuana daily, U tox positive for THC, advised to abstain from daily marijuana use DVT prophylaxis: Not indicated, scheduled for biopsy GI prophylaxis: Not indicated Diet: Renal Lines: Peripheral IV Code status: Full code Case discussed with Attending Dr. Aviles. Bhavik Patel PGY1 Disclaimer: This note was dictated by speech recognition. Minor errors in milling machine tender may be present due to voice recognition software.
[2025-01-01] MEDS: PRAVASTATIN SODIUM 10 MG TABLET 20 MG PO (20:38)
[2025-01-02] VITALS (7 sets, daily range): BP systolic 119–133; BP diastolic 79–89; PULSE 57–78; RESP 18; TEMP 36–36.2; O2SAT 94–95
[2025-01-02 05:55] LABS: Basophils # (Auto) 0.1 Thou/mm3 (0.0-0.2); Basophils % (Auto) 1 % (0-2.5); Eosinophils # (Auto) 0.4 Thou/mm3 (0.0-0.5); Eosinophils % (Auto) 6 % (0-10); Hemoglobin 11.7 g/dL (13.5-16.0); Immature Granulocytes % (Auto) 0 % (0-0); Immature Granulocytes Auto 0.01 Thou/mm3 (0.00-0.00); Lymphocytes % (Auto) 29 % (10-50); Mean Corpuscular HGB Conc 34.4 g/dl (31.0-37.0); Mean Corpuscular Hemoglobin 30.4 pg (25.0-35.0); Mean Corpuscular Volume 88 fL (80-100); Monocytes # (Auto) 0.6 Thou/mm3 (0.0-0.8); Monocytes % (Auto) 9 % (0-12); Neutrophils # (Auto) 3.8 Thou/mm3 (1.8-7.7); Neutrophils % (Auto) 55 % (37-80); Nucleated Red Blood Cell % 0 /100 WBC (0); Platelet Count 208 Thou/mm3 (140-440); RDW Standard Deviation 37.9 fL (35.1-43.9); Red Blood Count 3.85 Miln/mm3 (4.50-5.90); White Blood Count 6.9 Thou/mm3 (3.8-10.6)
[2025-01-02 06:07] LABS: Alanine Aminotransferase 111 U/L (10-49); Albumin, Serum 2.5 gm/dL (3.5-5.0); Albumin/Globulin Ratio 1.9 (1.2-2.2); Alkaline Phosphatase 58 U/L (46-116); Anion Gap 7 (7-16); Aspartate Amino Transferase 89 U/L (0-34); BUN/Creatinine Ratio 22 Ratio (12-20); Bilirubin,Total 0.3 mg/dL (0.3-1.2); Blood Urea Nitrogen 33 mg/dL (9-23); Calcium 8.1 mg/dL (8.3-10.6); Calcium (Corrected) 9.3 mg/dL (8.5-10.1); Carbon Dioxide 30.5 mMol/L (20.0-31.0); Chloride 106 mMol/L (98-107); Creatinine (Component) 1.5 mg/dL (0.6-1.3); Estimated Creatinine Clearance 73.7 mL/min (>60); Globulin 1.3 gm/dL (2.3-3.5); Glucose 106 mg/dL (74-106); Osmolality,Calculated 292 (275-295); Potassium 4.1 mMol/L (3.4-5.1); Sodium 143 mMol/L (136-145); Total Protein 3.8 gm/dL (5.7-8.2); eGFR > 60 See Note
[2025-01-02] MEDS: ACETAMINOPHEN 325 MG TABLET 650 MG PO (08:03)
[2025-01-02] MEDS: CALCITRIOL 0.25 mCg CAPSULE PO (09:16)
[2025-01-02] MEDS: ASPIRIN EC 81 MG TABEC PO (09:16)
[2025-01-02] MEDS: LOSARTAN POTASSIUM 25 MG TABLET 50 MG PO (09:19)
[2025-01-02] MEDS: FUROSEMIDE INJ 10 MG/ML 4ML VIAL 40 MG IVP (09:20)
[2025-01-02] MEDS: ALBUMIN HUMAN 25% IVPB 25 GM/100 ML BTL IV (09:22)
--- NOTE | 2025-01-02 09:57 | PD.RESPRO ---
Documentation for date of: 01/02/25 Subjective Subjective Interval history: Hans is a 29 y/o male with no pertinent PMHx who comes in from PCP office (Dr. Rollins) for an evaluation of possible nephrotic syndrome. Patient reports that about 3 weeks ago he came into the emergency room for an evaluation of lower extremity edema. He said that this has never happened to him before. He also said that he denied any recent travel, recent sicknesses or recent contacts prior to this happening. He denied any other symptoms associated with this, however he did say they he seen some foaming of the urine over this time. He also denied any recent weight loss. While he was in the ED he was told that he had some liver issues and was told to follow-up with his primary care doctor as well. He started to follow-up with some primary care doctors and had labs done and was then referred to Dr. Rollins for further evaluation of his kidney function. When discussed with his labs, he was unaware that there was protein developing in his urine, however he was aware that he had extremely high cholesterol (total cholesterol in the 400s) and he was taking Lipitor 40 mg, and he was also discharged from the ED with ibuprofen, Lasix and lisinopril 5 mg. He denies any family history of kidney disease including genetic or any of his family members being on hemodialysis. Denies any chest pain, shortness of breath, vision changes, numbness, tingling, confusion, headache. He denies a family history or personal history of hematologic disorders as well. ED Course: He arrived to the ED with a blood pressure of 153/93, heart rate 66, respiratory rate 18, temperature 98.3, saturating 98% on room air. He was worked up once found to have a hemoglobin of 13.8, BUN/creatinine of 40 and 2.1 respectively, glucose 170, GFR 42, AST ALT 126 and 159, BNP of 110, +3 blood in the urine, +3 protein, 19 RBCs, 9 white cells. Patient was given 1 L bolus normal saline in the ED. Medicine was consulted and patient was admitted to the floors 12/31/2024 Patient examined at bedside today. No acute overnight events. Patient reports he is doing well. He slept well. He is wondering when he can get his renal biopsy. His white count today 6.5, hemoglobin 14, sodium 139, potassium 4.1, chloride 106, bicarb 30, BUN/creatinine 43 and 1.9 respectively, calcium 9.1, phosphorus 3.6, magnesium 2.2, AST ALT 121 and 160 respectively. 24-hour urine protein showed 6 g. 01/01/2025, patient examined at bedside, noted improvement in lower extremity edema, pending renal biopsy today. Patient can be discharged home after renal biopsy, recommended starting patient on the following medications on discharge after the biopsy, if patient is able to urinate normally : Calcitriol 0.25 mg daily, losartan 50 mg daily, aspirin 81 mg daily, pravastatin 20 mg daily, continue diuresis with bumetanide. Dietitian consult and high-protein diet. 01/02/2025, patient examined at the bedside, mild discomfort at site of biopsy, dressing is dry and clean, no bleeding, able to pass urine without difficulty. From nephrology standpoint patient can be discharged home on Calcitriol 0.25 mg daily, losartan 50 mg daily, aspirin 81 mg daily, pravastatin 20 mg daily, continue diuresis with bumetanide. Dietitian consult and high-protein diet. 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 Exam Vital Signs Temp Pulse Resp BP Pulse Ox O2 Del Method 97.1 F 57 L 18 131/89 H 95 Room Air 01/02/25 08:00 01/02/25 09:20 01/02/25 08:00 01/02/25 09:20 01/02/25 08:00 01/02/25 08:00 Narrative Exam General: AAOx3, NAD, male HEENT: Moist mucous membranes, conjunctiva clear, EOMI, PERRLA, Cardiovascular: S1, S2, radial pulses +2 bilat, RRR Pulmonary: CTAB bilat no cough, no wheezing GI: No tenderness to light or deep palpitation, no guarding, rigidity, rebound tenderness or distension Extremities: Anasarca extending to Upper LE, bilat dorsalis pedis pulses +2 bilaterally Neuro: AAOx3, no focal motor or sensory deficits in the UE or LE bilat Psych: Good judgement, thought and behavior Objective Labs 01/02/25 04:15 01/02/25 04:15 Labs: Laboratory Results - last 24 hr 01/02/25 04:15 WBC 6.9 RBC 3.85 L Hgb 11.7 L Hct 34.0 L MCV 88 MCH 30.4 MCHC 34.4 RDW Std Deviation 37.9 Plt Count 208 Neut % (Auto) 55 Lymph % (Auto) 29 Bacon % (Auto) 9 Eos % (Auto) 6 Baso % (Auto) 1 Neut # (Auto) 3.8 Lymph # (Auto) 2.0 Bacon # (Auto) 0.6 Eos # (Auto) 0.4 Baso # (Auto) 0.1 Immature Gran # (Auto) 0.01 H Absolute Nucleated RBC 0.00 Immature Gran % 0 Nucleated RBC % 0 Sodium 143 Potassium 4.1 Chloride 106 Carbon Dioxide 30.5 Anion Gap 7 BUN 33 H Creatinine 1.5 H Estim Creat Clear Calc 73.7 eGFR > 60 BUN/Creatinine Ratio 22 H Glucose 106 Calculated Osmolality 292 Calcium 8.1 L Corrected Calcium 9.3 Total Bilirubin 0.3 AST 89 H ALT 111 H Alkaline Phosphatase 58 Total Protein 3.8 L Albumin 2.5 L Globulin 1.3 L Albumin/Globulin Ratio 1.9 Quality Measures Quality Measures none Assessment & Plan Assessment Current Active Medications: Generic Name Dose Route Start Last Admin Trade Name Freq PRN Reason Stop Dose Admin Acetaminophen 650 mg 12/29/24 17:26 01/02/25 08:03 Acetaminophen 325 Mg Tablet PO 01/28/25 17:25 650 mg Q6H PRN Administration Pain (1-3) & Fever >100.4 Aspirin 81 mg 01/02/25 09:00 01/02/25 09:16 Aspirin Ec 81 Mg Tabec PO 02/01/25 08:59 81 mg QDAY NANETTE Administration Calcitriol 0.25 mcg 01/01/25 09:15 01/02/25 09:16 Calcitriol 0.25 Mcg Capsule PO 01/31/25 09:14 0.25 mcg QDAY NANETTE Administration Furosemide 40 mg 12/31/24 09:00 01/02/25 09:20 Furosemide Inj 10 Mg/Ml 4ml Vial IVP 01/30/25 08:59 40 mg QDAY NANETTE Administration Albumin Human 25 gm in 100 mls @ 100 mls/hr 12/31/24 09:00 01/02/25 09:22 Albuminar-25 Ivpb IV 01/03/25 08:59 100 mls/hr BID NANETTE Administration Losartan Potassium 50 mg 01/02/25 09:00 01/02/25 09:19 Losartan Potassium 25 Mg Tablet PO 02/01/25 08:59 50 mg QDAY NANETTE Administration Ondansetron HCl 4 mg 12/29/24 17:26 Ondansetron Inj 2 Mg/Ml Inj 2 Ml IVP 01/28/25 17:25 Q6H PRN NAUSEA OR VOMITING Protocol Pravastatin Sodium 20 mg 01/01/25 21:00 01/01/25 20:38 Pravastatin Sodium 10 Mg Tablet PO 01/31/25 20:59 20 mg HS NANETTE Administration Sennosides 1 tab 12/29/24 17:26 Senna Tablet PO 01/28/25 17:25 QDAY PRN constipation Protocol Plan Assessment Hans is a 29 y/o male with no pertinent PMHx who comes in from PCP office (Dr. Rollins) for an evaluation of possible nephrotic syndrome. 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 Diuresis with 40 Lasix IV daily with albumin 25 g twice daily for 3 days ? CT-guided renal biopsy today ? Pending biopsy for adequate treatment ? Trend with CMP ? Avoid nephrotoxic agents ? Renally dose medicines ? Follow-up complement, JAN, ceruloplasmin - Patient can be discharged on following medications calcitriol 0.25 mg daily, losartan 50 mg daily, aspirin 81 mg daily, pravastatin 20 mg daily, continue diuresis with bumetanide. Recommend follow-up with biopsy results with Dr. Danielson's office within 1 week. #Secondary hyperparathyroidism PTH 142 Calcium 9.2; phosphorous 4.0 25-Hydroxy Vitamin D 7.6 (Borderline low) This could be a manifestation of secondary hyperparathyroidism with CKD, loss of vitamin D binding protein which can be seen in nephrotic syndrome Ionized calcium slightly low at 4.4 Plan: ? Follow-up 24-hour urine calcium ? Follow-up activated vitamin D #Elevated TSH TSH 6.26 Thyroid hormones lost in conditions like nephrotic syndrome Unable to order thyroid binding globulin Total T4 and T3 which are bound forms will typically be low in nephrotic syndrome due to loss of thyroid binding globulin as opposed to free T3 and T4 Free thyroxine normal Plan: ? Free thyroxine ? F/u Total T3 ? Treat above #Elevated transaminases, improving #Prominent pancreatic head Diffuse fatty infiltration of liver seen on imaging Liver ultrasound shows prominent pancreatic head and fluid around liver Plan: ? Trend with CMP ? Avoid hepatotoxic agents ? Consider MRI for pancreatic head workup #Hypertension #Hyperlipidemia Related to nephrotic syndrome Plan: ? Holding statin in setting of elevated transaminases ? Holding home blood pressure medicine at this time due to EMORY Patient seen and care discussed with my attending physician, Dr. Ria Gonzalez PGY 2 Attending Provider Attestation/Addendum Patient seen and examined with resident physician Dr. Gonzalez, Note reviewed, agree with findings and recommendations. Patient with nephrotic syndrome (edema, hypoalbuminemia, hyperlipidemia, nephrotic range proteinuria) no history of diabetes, hypertension. Decided to proceed with kidney biopsy -Probably minimal-change versus FSGS. So far all serology negative. s/p kidney biopsy done-he will need aspirin as nephrotic syndrome his hypercoagulable state. Added pravastatin due to elevated liver enzymes. Continue with diuretics. Care discussed with at bedside. Had low-dose ARB for proteinuria Added calcitriol for hyperparathyroidism Will see him in my office in 1 week to discuss the biopsy results. Renal rivera stable for discharge. Plan of care discussed with primary team
--- NOTE | 2025-01-02 12:20 | ESDS_ITS ---
<Statement entered by Lela Aviles MD - 01/05/25 08:58> I reviewed above note and agree with findings and plans. I have also personally examined the patient with medicine team and went over assessment and plan with medical team including product management internship and resident physician. Planned Discharge Date 01/02/25 DS: Providers Provider Date of admission: 12/29/24 17:26 Primary care physician: Fabio Sorto MD Admitting Provider: Rancho De Jesus MD Attending Provider on Admission: Lela Aviles MD Consults: 12/29/24 17:32 Consult to Nephrology Routine Comment: [facility] Consulting Provider: Sparkle Rollins 12/29/24 20:06 [facility] Referral - Knowledge Deficit Routine Comment: Positive screening for knowledge deficit needs. 12/31/24 07:36 Referral Registered Dietitian Routine Comment: pt has low protein, hypoalbuminemia Attending Provider on DC: Lela Aviles MD Discharging Provider: Lela Aviles MD Anticipated date of discharge: 01/02/25 DS: Diagnosis Problem List Completed Was Problem List Reviewed/Reconciled?: Yes Hospital Course Hospital Course Hospital course: Hospital course: Mr. Amezcua is a 29-year-old male with past medical history of bilateral lower extremity edema, proteinuria, hematuria and suspected nephrotic syndrome who presented to [facility] emergency department on December 29, 2024 from nephrology office after being sent for acute kidney injury. Patient on presentation noted to have BUN 40, creatinine 2.1, GFR 42, baseline creatinine noted 1.2 in November. Nephrology was consulted, recommended further workup and renal biopsy. Patient during hospitalization was started on IV Lasix and IV albumin, 24-hour urine collection showed significant proteinuria, high suspicion of nephrotic syndrome, possible underlying FSGS versus minimal-change disease, patient's renal function improved, transaminitis improved with holding statins. Patient had successful renal biopsy done on January 01, 2025, further plan is to discharge patient home on aspirin, calcitriol, Lasix, losartan and pravastatin. Patient to maintain close outpatient follow-up with nephrology and follow-up in 1 week. Patient responded well to hospital treatment and is stable for discharge. Discharge diagnosis: #Acute Kidney Injury, improved #Nephrotic syndrome #Bilateral lower extremity edema #Hypoalbuminemia, proteinuria #Transaminitis #Dyslipidemia #Hyperlipidemia #THC dependence Case discussed with Attending Dr. Aviles. Bhavik Patel PGY1 Disclaimer: This note was dictated by speech recognition. Minor errors in buffing wheel former automatic may be present due to voice recognition software. Status at Discharge Functional status at discharge: independent ambulation Overall status at discharge: patient is progressing back to baseline Time Spent with Patient Time attestation: Total time spent providing and/or coordinating discharge services: Time spent: Greater than 30 minutes Exam Vital Signs Temp Pulse Resp BP Pulse Ox O2 Del Method 97.1 F 57 L 18 131/89 H 95 Room Air 01/02/25 08:00 01/02/25 09:20 01/02/25 08:00 01/02/25 09:20 01/02/25 08:00 01/02/25 08:00 Narrative Exam Physical Exam General: Awake and in no acute distress. Conversational and non-toxic appearing. HEENT: Normocephalic, atraumatic, mucous membranes moist. Heart: Regular rate and rhythm, no murmurs. Lungs: Clear to auscultation with no wheezing or crackles. Abdomen: Soft, nondistended, nontender, positive bowel sounds. ?No guarding or rebound tenderness. Neurologic: Alert and oriented x3, no gross neurological deficit, and patient ab le to move all 4 extremities. Extremities:1+ bilateral lower extremity edema upto thighs Skin: No rash or ecchymoses. Discharge Plan Plan Patient Disposition: HOME (Self Care) Patient condition on transfer: Stable Care Plan Goals: Take Lasix 40 mg tablet daily, this is a water pill to remove excess fluid from your body. Take losartan 50 mg tablet daily, this is to control your blood pressure and preserve kidney function. Take pravastatin 20 mg every night, this is to control your cholesterol. Take aspirin 81 mg daily, this is an antiplatelet drug, assists with preventing clot formation. Take calcitriol 0.25 mcg daily, to correct your vitamin D deficiency and prevent bone disease. Follow-up outpatient with dry heat cabinet attendant Dr. Rollins in 1 week to follow the results of your biopsy. Follow-up with primary care physician in 1 to 2 weeks. Return to emergency department if symptoms worsen. Prescriptions/Referrals Prescriptions/Med Rec: New aspirin 81 mg Tablet,Delayed Release (Dr/Ec) 81 mg PO QDAY 30 Days Qty: 30 3RF calcitriol 0.25 mcg Capsule 0.25 mcg PO QDAY 30 Days Qty: 30 0RF pravastatin 20 mg tablet 20 mg PO HS 30 Days Qty: 30 0RF furosemide [Lasix] 40 mg tablet 40 mg PO QDAY Qty: 30 0RF losartan 50 mg tablet 50 mg PO QDAY Qty: 30 0RF Discontinued atorvastatin 40 mg tablet 40 mg PO QDAY 30 Days Qty: 30 0RF bumetanide 2 mg tablet 2 mg PO QDAY Patient Comments: TAKE 1 TABLET BY MOUTH EVERY DAY Referrals: Fabio Sorto MD [Primary Care Provider] - Sparkle Rollins MD [Physician] - Patient/Caregiver Discharge Instructions Discharge Activity: activity as tolerated Education Materials: Total Protein and A/G Ratio, Coping with Kidney Failure, Biopsy Kidney Dc Print Language: Bangladeshi Stand Alone Forms: Jacquelyn Award Info., Patient Portal Info Letter Discharge Order Discharge Orders: Discharge (Routine); Ordered 01/02/25 Ordered By: Bhavik Patel Quality Discharge Quality Measures VTE prophylaxis
[2025-01-05 07:00] LABS: ANA Screen, IFA NEGATIVE (NEGATIVE); Alpha-1-Antitrypsin* 105 mg/dL (83-199); Ceruloplasmin* 20 mg/dL (14-30)
[2025-01-05 07:05] LABS: T3,Total* 81 ng/dL (76-181)
[2025-01-06 06:43] LABS: Complement Component C3* 150 mg/dL (82-185); Complement Component C4c* 40 mg/dL (15-53); Vitamin D,1,25 (OH)2,Total <8 pg/mL (18-72); Vitamin D2, 1,25 (OH)2 <8 pg/mL; Vitamin D3, 1,25 (OH)2 <8 pg/mL
== END 2025-01-02 11:40 | disposition home or self-care (01) | DRG 462 ==
LOC: SERX 17:35 → SERHOLD 18:03 → S3SX 19:42
PROVIDERS: Physician Assistant Medical; Admitting Provider Internal Medicine; Emergency Provider Family Medicine; PCP Student in an Organized Health Care Education/Training Program; Visit Provider Internal Medicine
DX: N04.9 Nephrotic syndrome with unspecified morphologic changes (principal); N17.9 Acute kidney failure, unspecified; D68.59 Other primary thrombophilia; E88.09 Other disorders of plasma-protein metabolism, not elsewhere classified; K76.0 Fatty (change of) liver, not elsewhere classified; F12.20 Cannabis dependence, uncomplicated; E78.00 Pure hypercholesterolemia, unspecified; I10 Essential (primary) hypertension; N25.81 Secondary hyperparathyroidism of renal origin; Z79.899 Other long term (current) drug therapy; Z79.82 Long term (current) use of aspirin
CPT/HCPCS: 36415; 76705; 77012; 80053; 80061; 81001; 82043; 82103; 82306; 82330; 82390; 82436; 82570; 82652; 82728; 83036; 83540; 83690; 83735; 83880; 83970; 84100; 84133; 84156; 84300; 84439; 84443; 84480; 84550; 85025; 85610; 85730; 86038; 86160; 93005; 93225; 96360; 99285; J1938; J3010; J7030; P9047; A9270